=== PATIENT | male | born 1945 | race Caucasian/White ===

== ENCOUNTER → 2016-12-09 07:01 | Day surgery (SDC) | payer MEDICARE, BC ==
[~2016-12-09 07:01] MED LIST: Ibuprofen TAB* 600 MG ONE; Ibuprofen TAB* 600 MG PO PRN
[2016-12-09 07:19] VITALS: BP 104/54
--- NOTE | 2016-12-09 08:52 | RAD ---
Indication: Post power port placement. Comparison: July 12, 2016 CT. Technique: Upright AP 0825 hours Report: RIGHT chest port tip at level of superior vena cava RIGHT atrial junction. Clear lungs and pleural spaces. Negative for pneumothorax. The heart, pulmonary vasculature, and mediastinal contours are unremarkable. IMPRESSION: Negative for pneumothorax post RIGHT chest port placement.
--- NOTE | 2016-12-09 08:54 | RAD ---
INDICATION: Pancreatic carcinoma. Chest port placement. COMPARISON: None. TECHNIQUE: 10 seconds fluoroscopy. FINDINGS: Spot images document a RIGHT side chest port. IMPRESSION: Procedural fluoroscopy. CPT II Codes: 6045F
--- NOTE | 2016-12-10 00:11 | OP ---
DATE OF OPERATION: 12/09/16 DATE OF : 47 SURGEON: Eliu Chen MD JOB ANALYST: None. ANESTHESIOLOGIST: None. PRE-OP DIAGNOSIS: Pancreatic carcinoma. POST-OP DIAGNOSIS: Pancreatic carcinoma. OPERATIVE PROCEDURE: Placement of right subclavian 8-Emirati PowerPort. DESCRIPTION OF PROCEDURE: The patient was supine on the fluoroscopy table. The right chest and neck region were prepped with antiseptic, draped in a sterile fashion. Local infiltrative anesthesia was administered. Approximately 3-cm right subclavian incision was created and inferior pocket was created. Subclavian venipuncture was carried out, guidewire passed under fluoroscopic guidance, catheter passed with a peel-away introducer and measured and cut to 22 cm, attached to the port, which was sutured in the pocket with 2-0 Prolene. The pocket was closed with 3-0 and 5-0 Polysorb followed by Steri-Strips. The port was accessed, there was good blood return especially with saline solution and heparinized solution followed by a Tegaderm dressing. He tolerated the procedure well. He was brought to Recovery in good condition, no complications , no drains, no pathologic specimens. Sponge and instrument counts correct. Estimated blood loss 5 mL. CC: Eliu Chen MD; Surya Gregorio MD * [id number]/[facility] #: [id number] MTDD
== END | disposition home or self-care (01) ==
LOC: OR 07:01
PROVIDERS: ATTEND Surgery
DX: C25.9 Malignant neoplasm of pancreas, unspecified (principal); E11.8 Type 2 diabetes mellitus with unspecified complications; Z79.4 Long term (current) use of insulin; Z87.891 Personal history of nicotine dependence
CPT/HCPCS: 71010; A9270-GY; C1788

== ENCOUNTER 2016-12-22 17:42 | Emergency (ER) | payer MEDICARE, BC ==
[2016-12-22] MEDS ORDERED: NS 0.9% 1000 ML* 3,000 ML IV ONE (18:30)
[2016-12-22] MEDS ORDERED: Cefepime(*) 2 GM in NS 0.9% 50 ML* 50 ML IVPB ONE (18:30)
[2016-12-22] MEDS ORDERED: Ciprofloxacin 400MG IVPREMIX(* 400 MG/200 ML BAG IVPB ONE (18:31)
[2016-12-22] MEDS ORDERED: metroNIDAZOLE IV 500 MG/100ML* 500 MG/100 ML BAG IVPB ONE (18:31)
[2016-12-22] MEDS ORDERED: NS 0.9% 50 ML* 0 ML ONE (19:41)
[2016-12-22 19:46] LABS: Hematocrit 28 % (42-52); Hemoglobin 9.4 g/dl (14.0-18.0); Mean Corpuscular HGB Conc 33 g/dl (31-36); Mean Corpuscular Hemoglobin 30 pg (27-31); Mean Corpuscular Volume 92 fL (80-94); Mean Platelet Volume 6 um3 (7.4-10.4); Red Blood Count 3.08 10^6/ul (4.0-5.4); Red Cell Distribution Width 15 % (10.5-15)
[2016-12-22 19:58] LABS: Comments Flag Yes
[2016-12-22 19:59] LABS: White Blood Count 3.3 10^3/ul (3.5-10.8)
[2016-12-22 20:01] LABS: ALT 75 U/L (7-52); AST 109 U/L (13-39); Alkaline Phosphatase 603 U/L (34-104); Anion Gap 7 mmol/L (2-11); BUN/Creatinine Ratio 21.1 (8-20); Blood Urea Nitrogen 15 mg/dL (6-24); C Reactive Protein 71.45 mg/L (< 5.00); CO2 Carbon Dioxide 26 mmol/L (22-32); Calcium 8.9 mg/dL (8.6-10.3); Chloride 99 mmol/L (101-111); EGFR African American 141.1 (>60); EGFR Non-African American 109.7 (>60); Globulin 3.4 g/dL (2-4); Glucose 157 mg/dL (70-100); Lipase < 10 U/L (11.0-82.0); Magnesium 1.4 mg/dL (1.9-2.7); Potassium 3.1 mmol/L (3.5-5.0); Sodium 132 mmol/L (133-145); Total Protein 6.4 g/dL (6.4-8.9)
[2016-12-22 20:02] LABS: Troponin I 0.01 ng/mL (<0.04)
[2016-12-22] MEDS ORDERED: Magnesium Sulfate 2 GM IV* 2 GM/50 ML BAG IVPB ONE (20:02)
--- NOTE | 2016-12-22 20:06 | ED ---
Tamara Upton Erika, scribed for Deep Small MD on 12/22/16 at 1901 . HPI Febrile Illness - HPI Summary HPI Summary: Patient is a 71-year-old male presenting to the ED with a CC of fever. Patient reports that when he woke up this morning, he had a fever (max temp 102-103), chills, and fatigue. Patient took Tylenol at 11:00 today. Patient also states he has had diarrhea for the past week. Patient has a Hx of bile duct cancer, and reports abdominal pain since he had a whipple in August 2016, but pain is worse today. Patient denies nasal discharge, sore throat, cough, chest congestion, nausea, and burning with urination. Patient reports that he had blood work done this morning, which showed a mildly low WBC count. Patient is due for chemotherapy tomorrow, and is followed by Dr. Gregorio. - History of Current Complaint Chief Complaint: EDFever Time Seen by Provider: 12/22/16 18:23 Hx Obtained From: Patient Onset/Duration: Started Hours Ago, Atraumatic, Still Present Timing: Constant Current Severity: Moderate Pain Intensity: 4 Pain Scale Used: 0-10 Numeric Associated Signs and Symptoms: Chills, Diarrhea - Additional Pertinent History Primary Care Physician: CHEY - Allergy/Home Medications Allergies/Adverse Reactions: Allergies Allergy/AdvReac Type Severity Reaction Status Date / Time No Known Allergies Allergy Verified 12/09/16 07:20 PMH/Surg Hx/FS Hx/Imm Hx Endocrine/Hematology History: Reports: Hx Diabetes - just started insulin since ipple Cardiovascular History: Denies: Hx Hypertension History: Denies: Hx Dialysis, Hx Renal Disease Sensory History: Reports: Hx Contacts or Glasses Opthamlomology History: Reports: Hx Contacts or Glasses Psychiatric History: Denies: Hx Eating Disorder, Hx of Violent Episodes Against Others - Cancer History Cancer Type, 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 ipple 07/30/16 Infectious Disease History: No Infectious Disease History: Denies: Traveled Outside the [place] in Last 30 Days - Family History Known Family History: Positive: Hypertension - Social History Lives: With Family Alcohol Use: Occasionally Hx Substance Use: No Substance Use Type: Reports: None Hx Tobacco Use: Yes Smoking Status (MU): Former Smoker Review of Systems Positive: Fever, Chills, Fatigue Negative: Sore Throat, Nasal Discharge Negative: Cough Positive: Abdominal Pain, Diarrhea. Negative: Nausea Negative: burning All Other Systems Reviewed And Are Negative: Yes Physical Exam Triage Information Reviewed: Yes Vital Signs On Initial Exam: Initial Vitals Temp Pulse Resp BP Pulse Ox 101.7 F 114 20 84/49 98 12/22/16 17:52 12/22/16 17:52 12/22/16 17:52 12/22/16 17:52 12/22/16 17:52 Vital Signs Reviewed: Yes Appearance: Positive: No Pain Distress, Ill-Appearing - Mildly Skin: Positive: Warm, Dry, Jaundiced, Other Head/Face: Positive: Normal Head/Face Inspection Eyes: Positive: EOMI, QUANG ENT: Positive: Normal ENT inspection Neck: Positive: Supple, Nontender Respiratory/Lung Sounds: Positive: Clear to Auscultation, Breath Sounds Present Cardiovascular: Positive: Tachycardia Abdomen Description: Positive: Soft, Other: - upper abdominal tenderness Bowel Sounds: Positive: Hypoactive Musculoskeletal: Positive: Normal, Strength/ROM Intact Neurological: Positive: Normal, Sensory/Motor Intact, Alert, Oriented to Person Place, Time Psychiatric: Positive: Affect/Mood Appropriate Diagnostics - Vital Signs Vital Signs Temp Pulse Resp BP Pulse Ox 12/22/16 17:52 101.7 F 114 20 84/49 98 - Laboratory Lab Results: Lab Results 12/22/16 12/22/16 12/22/16 Range/Units 19:40 19:40 19:40 WBC 3.3 L (3.5-10.8) 10^3/ul RBC 3.08 L (4.0-5.4) 10^6/ul Hgb 9.4 L (14.0-18.0) g/dl Hct 28 L (42-52) % MCV 92 (80-94) fL MCH 30 (27-31) pg MCHC 33 (31-36) g/dl RDW 15 (10.5-15) % Plt Count 60 L (150-450) 10^3/ul MPV 6 L (7.4-10.4) um3 Neut % (Auto) 84.4 H (38-83) % Lymph % (Auto) 7.4 L (25-47) % [place] % (Auto) 7.9 (1-9) % Eos % (Auto) 0.1 (0-6) % Baso % (Auto) 0.2 (0-2) % Absolute Neuts (auto) 2.7 (1.5-7.7) 10^3/ul Absolute Lymphs (auto) 0.2 L (1.0-4.8) 10^3/ul Absolute Monos (auto) 0.3 (0-0.8) 10^3/ul Absolute Eos (auto) 0 (0-0.6) 10^3/ul Absolute Basos (auto) 0 (0-0.2) 10^3/ul Absolute Nucleated RBC 0.01 10^3/ul Nucleated RBC % 0.2 INR (Anticoag Therapy) 1.30 H (0.89-1.11) APTT 37.6 H (26.0-36.3) seconds Sodium 132 L (133-145) mmol/L Potassium 3.1 L (3.5-5.0) mmol/L Chloride 99 L (101-111) mmol/L Carbon Dioxide 26 (22-32) mmol/L Anion Gap 7 (2-11) mmol/L BUN 15 (6-24) mg/dL Creatinine 0.71 (0.67-1.17) mg/dL Est GFR ( Amer) 141.1 (>60) Est GFR (Non-Af Amer) 109.7 (>60) BUN/Creatinine Ratio 21.1 H (8-20) Glucose 157 H (70-100) mg/dL Lactic Acid (0.5-2.0) mmol/L Calcium 8.9 (8.6-10.3) mg/dL Magnesium 1.4 L (1.9-2.7) mg/dL Total Bilirubin 2.40 H (0.2-1.0) mg/dL AST 109 H (13-39) U/L ALT 75 H (7-52) U/L Alkaline Phosphatase 603 H (34-104) U/L CK-MB (CK-2) Pending Troponin I 0.01 (<0.04) ng/mL C-Reactive Protein 71.45 H (< 5.00) mg/L Total Protein 6.4 (6.4-8.9) g/dL Albumin 3.0 L (3.2-5.2) g/dL Globulin 3.4 (2-4) g/dL Albumin/Globulin Ratio 0.9 L (1-3) Lipase < 10 L (11.0-82.0) U/L 12/22/16 Range/Units 19:40 WBC (3.5-10.8) 10^3/ul RBC (4.0-5.4) 10^6/ul Hgb (14.0-18.0) g/dl Hct (42-52) % MCV (80-94) fL MCH (27-31) pg MCHC (31-36) g/dl RDW (10.5-15) % Plt Count (150-450) 10^3/ul MPV (7.4-10.4) um3 Neut % (Auto) (38-83) % Lymph % (Auto) (25-47) % [place] % (Auto) (1-9) % Eos % (Auto) (0-6) % Baso % (Auto) (0-2) % Absolute Neuts (auto) (1.5-7.7) 10^3/ul Absolute Lymphs (auto) (1.0-4.8) 10^3/ul Absolute Monos (auto) (0-0.8) 10^3/ul Absolute Eos (auto) (0-0.6) 10^3/ul Absolute Basos (auto) (0-0.2) 10^3/ul Absolute Nucleated RBC 10^3/ul Nucleated RBC % INR (Anticoag Therapy) (0.89-1.11) APTT (26.0-36.3) seconds Sodium (133-145) mmol/L Potassium (3.5-5.0) mmol/L Chloride (101-111) mmol/L Carbon Dioxide (22-32) mmol/L Anion Gap (2-11) mmol/L BUN (6-24) mg/dL Creatinine (0.67-1.17) mg/dL Est GFR ( Amer) (>60) Est GFR (Non-Af Amer) (>60) BUN/Creatinine Ratio (8-20) Glucose (70-100) mg/dL Lactic Acid 2.0 (0.5-2.0) mmol/L Calcium (8.6-10.3) mg/dL Magnesium (1.9-2.7) mg/dL Total Bilirubin (0.2-1.0) mg/dL AST (13-39) U/L ALT (7-52) U/L Alkaline Phosphatase (34-104) U/L CK-MB (CK-2) Troponin I (<0.04) ng/mL C-Reactive Protein (< 5.00) mg/L Total Protein (6.4-8.9) g/dL Albumin (3.2-5.2) g/dL Globulin (2-4) g/dL Albumin/Globulin Ratio (1-3) Lipase (11.0-82.0) U/L Result Diagrams: 12/22/16 19:40 12/22/16 19:40 Lab Statement: Any lab studies that have been ordered have been reviewed, and results considered in the medical decision making process. - Radiology CXR Radiology Interpretation Completed By: Radiologist - see [facility], currently pending - EKG 18:17 Cardiac Rate: NL - at 92 bpm EKG Rhythm: Sinus Rhythm ST Segment: Normal Ectopy: None Course/Dx - Course Course Of Treatment: CRITICAL CARE TIME LESS THAN 30 MINUTES Assessment/Plan: GIVEN ABX AND IVF IN ED. CT ABD/PELVIS PENDING AT SHIFT CHANGE. ADMIT VS TRANSFER DECISION PENDING CT RESULTS. STABLE AT SHIFT CHANGE. - Diagnoses Provider Diagnoses: Sepsis, Abdominal pain Discharge - Discharge Plan Condition: Stable Disposition: OTHER Discharge Disposition Comment: CT RESULTS PENDING AT SHIFT CHANGE Referrals: Deep Sheldon MD [Primary Care Provider] - The documentation as recorded by the Tamara ortez Erika accurately reflects the service I personally performed and the decisions made by me, Deep Small MD.
[2016-12-22 20:20] VITALS: BP 96/55
[2016-12-22] MEDS ORDERED: Iodixanol* (CONTRAST) 320 MG/ML 100 ML SDV IV ONE (20:29)
--- NOTE | 2016-12-22 21:05 | RAD ---
Indication: Fever. Single frontal view of the chest performed at 1952 hours was reviewed. Comparison is made with previous exam dated December 09, 2016. No mediastinal shift is noted. Heart is of normal size and configuration. Lung harvey appear clear. Central line appears in place. IMPRESSION: NO ACTIVE CARDIOPULMONARY DISEASE IS NOTED.
--- NOTE | 2016-12-22 21:43 | RAD ---
Indication: Status post Whipple's procedure, pancreatic carcinoma. Contrast: Administered 87.8 ml of VISAPAQUE 320 mgi/ml CT of the abdomen and pelvis was performed after oral and IV contrast administration. Coronal and sagittal reconstructed images were obtained. The lung bases demonstrate no pleural fluid, nodules or masses. Left basilar atelectasis is noted. The heart demonstrates no pericardial effusion. The liver is normal in size. Hepatic cyst is noted in the dome of the right lobe of liver measuring up to 20 mm. Other cysts are noted in the left lobe of liver. There is linear low density in the periportal structures surrounding the left lobe of the liver. The patient has had prior cysts and biliary duct dilatation in this area. The linear hypodensity now appear to be ill-defined relative to the prior exam and the possibility of cholangitis cannot BE excluded. The patient status post Whipple procedure. Presumed pancreatic duct stent is noted extending into the anastomosis. Mild infiltration of fat surrounding pancreaticoduodenal ostomy is present. This is slightly progressed from previous exam. Underlying pancreatitis is not excluded. The spleen is normal in size. No adrenal masses are noted. The kidneys demonstrate symmetric nephrograms without focal lesions. No hydronephrosis is noted. No retroperitoneal lymphadenopathy is noted. Infiltration of fat is noted surrounding the retroperitoneal structures. No dilated loops of bowel are noted. There is focal wall thickening in the cecum. Possibility of typhlitis should BE considered. Diverticulosis without definite evidence of diverticulitis is noted. A small amount of free fluid is noted in the cul-de-sac. The urinary bladder and prostate are unremarkable. IMPRESSION: THERE IS INCREASED ILL-DEFINED PERIPORTAL EDEMA PRESENT WHEN COMPARED TO PREVIOUS EXAM OF OCTOBER 01, 2016. THE POSSIBILITY OF CHOLANGITIS SHOULD BE CONSIDERED. THERE MAY BE UNDERLYING PANCREATITIS WITH INFILTRATION OF FAT AT THE PANCREATICODUODENOSTOMY WITH PANCREATIC STENT IN PLACE. THICKENING OF THE CECUM WHICH MAY REPRESENT TYPHLITIS. CUL-DE-SAC FLUID IS IMPROVED SINCE PREVIOUS EXAM.
--- NOTE | 2016-12-22 21:46 | ED ---
Annie Upton Michael, scribed for Eliu Quesada MD on 12/22/16 at 2144 . Progress - Progress Note Progress Note: Pt was signed out to Dr. Quesada by Dr. Small. The pt must be transferred to [facility] after consulting with Dr. Ge-[facility] [place] [facility]. - Results/Orders Results/Orders: CXR: Radiologist-No active cardiopulmonary disease is noted. CT A/P: Radiologist- There is increased ill-defined periportal edema present when compared to previous exam of October 01, 2016. The possibility of cholangitis should be considered. There may be underlying pancreatitis with infiltration of fat at the pancreaticoduodenostomy with pancreatic stent in place. Thickening of the cecum which may represent typhlitis. [place] fluid improved since previous exam. Course/Dx - Course Course Of Treatment: CRITICAL CARE TIME LESS THAN 30 MINUTES - Diagnoses Provider Diagnoses: Sepsis, Abdominal pain The documentation as recorded by the Annie ortez Michael accurately reflects the service I personally performed and the decisions made by Dipak corbin David, MD.
[2016-12-22 22:17] LABS: Urine Bilirubin Negative (Negative); Urine Glucose Negative (Negative); Urine Nitrite Negative (Negative)
--- NOTE | 2016-12-22 22:41 | CONSULT ---
Consult Consult: PCP: Mariah Sheldon MD Oncology: Farhan Gregorio MD Date/Time of Evaluation: 12/22/2016 2230 Reason for Consult: fever, increased abdominal pain in patient w/ pancreatic CA s/p modified Whipple HPI: Mr Ramirez is a 71YO male HX pancreatic CA s/p modified Whipple performed at [facility] 07/2016 complicated by abscess formation & pancreatic stenting as well as post-ABX C-diff who reports awakening this AM with subjective F/C and significantly increased fatigue. He has had some mild stable diarrhea present since starting chemoTX. He slept most of the day and called his oncologist's office when his temperature was found to be 102F. He was advised to come to [facility] ED for evaluation which revealed a CT abd/pel W read as possible cholangiitis vs pancreatitis. Request for admission was made, but due to concern for his complicated anatomy his situation was reviewed with Luis Fernando Ge MD surgery who felt he would be best served at [facility] where they would be able to definitely handle any infectious complication. As such, recommendation to transfer was made. PMedHx pancreatic CA s/p modified Whipple complicated by abscess; s/p pancreatic stenting HX C.diff Crohn's disease GERD DM2 HX diverticulitis Allergies No Known Allergies Allergy (Verified 12/09/16 07:20) Ambulatory Orders Omeprazole CAP* [Prilosec CAP* 20 MG] 20 mg PO DAILY 06/26/14 Lactobacillus [Probiotic] 06/27/16 Insulin Cartridge 3Ml 4 units SUBCUT DAILY 10/01/16 Acetaminophen [Tylenol] 325 mg PO QID 12/09/16 Ursodiol 250 mg PO BID 12/09/16 PSurgHx modified Whipple pancreatic stenting cholecystectomy tonsillectomy R knee arthroscopy for joint mouse SocHx: former smoker quit ~20 years ago, social alcohol, no recreational drugs; ; retired school counselor; full code status FamHx: positive for HTN, GERD ROS: as above, otherwise reviewed and all were negative Constitutional: NAD, normally developed, thin white male vitals: Vital Signs Temp 38.1 C 12/22/16 20:27 Pulse 87 12/22/16 20:27 Resp 19 12/22/16 20:27 BP 96/55 12/22/16 20:27 Pulse Ox 100 12/22/16 20:27 Intake & Output 12/22/16 12/22/16 12/23/16 11:59 23:59 11:59 Weight 70.307 kg HEENM: atraumatic; sclera/conjunctiva: non-icteric/clear; hearing: clinically intact; oropharynx: clear, mucosa moist Neck: soft tissue: non-tender, no nuchal rigidity; thyroid: normal Pulmonary: clear to auscultation bilaterally, good aeration, no accessory muscle use CV: RR/RR, normal S1S2, no carotid bruit, no jugular venous distention, 2+ B DP/ PT, no edema Abdominal: soft, non-distended, non-tender, no rebound/guarding/rigidity, normoactive bowel sounds, no hepatosplenomegaly or masses, no costovertebral angle tenderness Musculoskeletal: general: grossly intact; gait: stable Integumental: normal appearance and texture, no jaundice Psychiatric orientation: AA&O to PPS affect: calm mood: cooperative eye contact: good content: reliable responses: timely insight: good Testing: Lab Results 12/22/16 12/22/16 12/22/16 Range/Units 19:40 19:40 19:40 WBC 3.3 L (3.5-10.8) 10^3/ul RBC 3.08 L (4.0-5.4) 10^6/ul Hgb 9.4 L (14.0-18.0) g/dl Hct 28 L (42-52) % MCV 92 (80-94) fL MCH 30 (27-31) pg MCHC 33 (31-36) g/dl RDW 15 (10.5-15) % Plt Count 60 L (150-450) 10^3/ul MPV 6 L (7.4-10.4) um3 Neut % (Auto) 84.4 H (38-83) % Lymph % (Auto) 7.4 L (25-47) % [place] % (Auto) 7.9 (1-9) % Eos % (Auto) 0.1 (0-6) % Baso % (Auto) 0.2 (0-2) % Absolute Neuts (auto) 2.7 (1.5-7.7) 10^3/ul Absolute Lymphs (auto) 0.2 L (1.0-4.8) 10^3/ul Absolute Monos (auto) 0.3 (0-0.8) 10^3/ul Absolute Eos (auto) 0 (0-0.6) 10^3/ul Absolute Basos (auto) 0 (0-0.2) 10^3/ul Absolute Nucleated RBC 0.01 10^3/ul Nucleated RBC % 0.2 INR (Anticoag Therapy) 1.30 H (0.89-1.11) APTT 37.6 H (26.0-36.3) seconds Sodium 132 L (133-145) mmol/L Potassium 3.1 L (3.5-5.0) mmol/L Chloride 99 L (101-111) mmol/L Carbon Dioxide 26 (22-32) mmol/L Anion Gap 7 (2-11) mmol/L BUN 15 (6-24) mg/dL Creatinine 0.71 (0.67-1.17) mg/dL Est GFR ( Amer) 141.1 (>60) Est GFR (Non-Af Amer) 109.7 (>60) BUN/Creatinine Ratio 21.1 H (8-20) Glucose 157 H (70-100) mg/dL Lactic Acid (0.5-2.0) mmol/L Calcium 8.9 (8.6-10.3) mg/dL Magnesium 1.4 L (1.9-2.7) mg/dL Total Bilirubin 2.40 H (0.2-1.0) mg/dL AST 109 H (13-39) U/L ALT 75 H (7-52) U/L Alkaline Phosphatase 603 H (34-104) U/L CK-MB (CK-2) 0.4 L (0.6-6.3) ng/mL Troponin I 0.01 (<0.04) ng/mL C-Reactive Protein 71.45 H (< 5.00) mg/L Total Protein 6.4 (6.4-8.9) g/dL Albumin 3.0 L (3.2-5.2) g/dL Globulin 3.4 (2-4) g/dL Albumin/Globulin Ratio 0.9 L (1-3) Lipase < 10 L (11.0-82.0) U/L Urine Color Urine Appearance Urine pH (5-9) Ur Specific [place] (1.010-1.030) Urine Protein (Negative) Urine Ketones (Negative) Urine Blood (Negative) Urine Nitrate (Negative) Urine Bilirubin (Negative) Urine Urobilinogen (Negative) Ur Leukocyte Esterase (Negative) Urine Glucose (Negative) 12/22/16 12/22/16 Range/Units 19:40 22:10 WBC (3.5-10.8) 10^3/ul RBC (4.0-5.4) 10^6/ul Hgb (14.0-18.0) g/dl Hct (42-52) % MCV (80-94) fL MCH (27-31) pg MCHC (31-36) g/dl RDW (10.5-15) % Plt Count (150-450) 10^3/ul MPV (7.4-10.4) um3 Neut % (Auto) (38-83) % Lymph % (Auto) (25-47) % [place] % (Auto) (1-9) % Eos % (Auto) (0-6) % Baso % (Auto) (0-2) % Absolute Neuts (auto) (1.5-7.7) 10^3/ul Absolute Lymphs (auto) (1.0-4.8) 10^3/ul Absolute Monos (auto) (0-0.8) 10^3/ul Absolute Eos (auto) (0-0.6) 10^3/ul Absolute Basos (auto) (0-0.2) 10^3/ul Absolute Nucleated RBC 10^3/ul Nucleated RBC % INR (Anticoag Therapy) (0.89-1.11) APTT (26.0-36.3) seconds Sodium (133-145) mmol/L Potassium (3.5-5.0) mmol/L Chloride (101-111) mmol/L Carbon Dioxide (22-32) mmol/L Anion Gap (2-11) mmol/L BUN (6-24) mg/dL Creatinine (0.67-1.17) mg/dL Est GFR ( Amer) (>60) Est GFR (Non-Af Amer) (>60) BUN/Creatinine Ratio (8-20) Glucose (70-100) mg/dL Lactic Acid 2.0 (0.5-2.0) mmol/L Calcium (8.6-10.3) mg/dL Magnesium (1.9-2.7) mg/dL Total Bilirubin (0.2-1.0) mg/dL AST (13-39) U/L ALT (7-52) U/L Alkaline Phosphatase (34-104) U/L CK-MB (CK-2) (0.6-6.3) ng/mL Troponin I (<0.04) ng/mL C-Reactive Protein (< 5.00) mg/L Total Protein (6.4-8.9) g/dL Albumin (3.2-5.2) g/dL Globulin (2-4) g/dL Albumin/Globulin Ratio (1-3) Lipase (11.0-82.0) U/L Urine Color [place] Urine Appearance Clear Urine pH 6.0 (5-9) Ur Specific [place] 1.020 (1.010-1.030) Urine Protein Negative (Negative) Urine Ketones Negative (Negative) Urine Blood Negative (Negative) Urine Nitrate Negative (Negative) Urine Bilirubin Negative (Negative) Urine Urobilinogen Negative (Negative) Ur Leukocyte Esterase Negative (Negative) Urine Glucose Negative (Negative) ECG, personally reviewed: IMPRESSION: NO ACTIVE CARDIOPULMONARY DISEASE IS NOTED. CT abd/pel W, personally reviewed: IMPRESSION: THERE IS INCREASED ILL-DEFINED PERIPORTAL EDEMA PRESENT WHEN COMPARED TO PREVIOUS EXAM OF OCTOBER 01, 2016. THE POSSIBILITY OF CHOLANGITIS SHOULD BE CONSIDERED. THERE MAY BE UNDERLYING PANCREATITIS WITH INFILTRATION OF FAT AT THE PANCREATICODUODENOSTOMY WITH PANCREATIC STENT IN PLACE. THICKENING OF THE CECUM WHICH MAY REPRESENT TYPHLITIS. CUL-DE-SAC FLUID IS IMPROVED SINCE PREVIOUS EXAM. Impression: 71M HX pancreatic CA s/p modified Whipple 07/2016 & pancreatic stent presents with fever, fatigue, leukopenia w/ adequate ANC and CT findings suggestive of cholangiitis vs pancreatitis whose complexity and potential need for surgical intervention unavailable at [facility] is recommended transfer to [facility] for higher level of care. Risks and benefits are explained. Questions are sought and answered to his satisfaction and he accepts transfer.
--- NOTE | 2016-12-24 09:22 | PN ---
Progress Note - Progress Note Note: Patient blood culture grew klebsiella pneumonia. Patient transferred to [facility] for sepsis so no further action needed at this time.
--- NOTE | 2016-12-26 08:46 | PN ---
Progress Note - Progress Note Note: Patient culture final results came back with growth of klebsiella pneumonia. Patient was given Flagyl in ED which bacteria is sensitive to and patient was transferred to facility for sepsis therefore no further action needed at this time.
== END 2016-12-23 01:08 | disposition short-term general hospital (02) ==
LOC: ED 17:42
DX: A41.9 Sepsis, unspecified organism (principal); R10.9 Unspecified abdominal pain; C25.9 Malignant neoplasm of pancreas, unspecified
CPT/HCPCS: 36415; 71010; 74177; 80053; 81003; 82553; 83605; 83690; 83735; 84484; 85025; 85060; 85610; 85730; 86140; 87040; 87077; 87186; 93005; 96365; 99283; J0692; J0744; J3475; J3490; Q9967

== ENCOUNTER 2017-03-16 12:08 | Inpatient (IN) | payer MEDICARE, BC ==
[~2017-03-16 12:08] MED LIST changes: -Ibuprofen TAB* 600 MG ONE; -Ibuprofen TAB* 600 MG PO PRN; +NS 0.9% 1000 ML* 1,000 ML IV SCH
[2017-03-16] MEDS ORDERED: Prochlorperazine TAB* 10 MG PO PRN (13:42)
[2017-03-16] MEDS: Pantoprazole IV* 40 MG IV SCH (15:44)
[2017-03-16] MEDS: Heparin VIAL(*) 5000 UNITS/ML VIAL (FIVE THOUSAND) SUBCUT SCH ×2 (15:45→22:12)
--- NOTE | 2017-03-16 18:04 | RAD ---
INDICATION: Colitis; uncontrolled diarrhea. History of Crohn's disease and pancreatic cancer. COMPARISON: December 22, 2016 CT. TECHNIQUE: Multidetector CT images were obtained from the lung bases to the ischial tuberosities. Evaluation of the viscera is limited without IV contrast. Multiplanar reformation. REPORT: Unremarkable visualized inferior thorax. Unchanged well-circumscribed water density lesions at the dome of the LEFT hepatic lobe with dominant 2.1 cm lesion. Assessment of the liver is limited without IV contrast. Post cholecystectomy. Pneumobilia. No biliary dilatation evident. Postsurgical change of resection of the pancreatic head. Proximal migration of the stent extending from the pancreatic duct to the small bowel compared with the prior exam. Residual pancreatic body and tail appear enlarged compared with the prior exam and remarkable for mild peripancreatic inflammatory change concerning for pancreatitis. No loculated peripancreatic fluid collections evident. Grossly new mass at the expected location of the pancreatic head measuring up to 4.4 cm AP by 4.3 cm transverse. This lesion appears to engulf the free end of a bowel loop related to the post Whipple biliary and pancreatic duct enteric anastomosis. Unchanged mild splenomegaly. Negative for CT abnormality of the jejunum or ileum. Unremarkable medially extending appendix. Moderate colonic diverticulosis most prominent at the sigmoid colon without compelling evidence for acute diverticulitis. Long segment mild hepatic flexure and transverse colon mural thickening with air-fluid levels without significant colonic dilatation. Negative for pneumatosis. Small volume of perihepatic and pelvic ascites similar to the prior exam. Diffuse reticulation throughout the abdominal fat without significant change. Negative for free air or hernias. Normal adrenal glands. Negative for hydronephrosis. Unremarkable unenhanced kidneys, ureters, and partially distended urinary bladder. Symmetric seminal vesicles. Subcentimeter short axis para-aortic and mesenteric lymph nodes noted without significant interval change. Negative for lymphadenopathy by size criteria. Negative for aortoiliac aneurysm. Partial physiologic distention of the IVC. Negative for suspicious osseous lesions. IMPRESSION: 1. Nonspecific long segment mild mural thickening of the colon with air-fluid levels without significant bowel dilatation. The appearance is consistent with mild nonspecific colitis. Colonic diverticulosis without findings of diverticulitis. 2. Interval significant enlargement of mass lesion at the level of the pancreatic head resection site. This lesion appears to engulf the free end of a bowel loop related to the post Whipple biliary and pancreatic duct enteric anastomosis. 3. Interval proximal rightward migration of the pancreatic stent and CT stigmata of probable acute pancreatitis. 4. Persistent small volume of ascites and reticulation throughout the abdominal fat concerning for potential peritoneal carcinomatosis. 5. Unchanged well-circumscribed water density lesions at the dome of the LEFT hepatic lobe with dominant 2.1 cm lesion.
--- NOTE | 2017-03-16 21:49 | CONS ---
GASTROENTEROLOGY CONSULT: DATE OF CONSULT: 03/16/17 REFERRING PHYSICIANS: Shubham Jade MD; Surya Gregorio MD REASON FOR CONSULTATION: Diarrhea starting abruptly, Tuesday evening, . HISTORY: This 71-year-old man who had a Whipple resection for pancreatic cancer fall and has recurring and persisting disease, now on gemcitabine for the last 3 months, had also a remote history of Crohn's disease , last treated with azathioprine and Lialda until June 2016 when he presented with obstructive jaundice, now has developed abrupt diarrhea for the last 4 days. He had a PowerPort placed on 12/09/16 because of persisting disease and Gemzar was started and has been given recurrently. He states that the last 3 weeks, he has been feeling pretty well and indeed went to [employer] [place] and then [place] on 03/11/17, and felt well enough to go to a [employer] the afternoon of 03/12/17 where he had potato salad and a pork sandwich. That evening, he developed abdomen and then diarrhea that began around midnight approximately hourly. He felt chills. He did not take his temperature. He did not have any vomiting. There was just persisting diarrhea. He contacted the oncology office and had a C. diff test on 03/12/17, that was negative. He continued to have diarrhea and became weaker and weaker and thought he had lost 10 pounds. He has been admitted to the hospital and he is afebrile with temp 98.2, blood pressure 111/63. Potassium is low at 2.9, sodium 131, BUN 26, creatinine 1.05. He is receiving electrolyte replacement. PAST MEDICAL HISTORY: 1. Pancreatic cancer - status post Whipple, then readmission for infection. Most recent CT scans have shown a 4 cm mass in the pancreatic bed area. 2. Crohn's disease - diagnosed at age 51 when he went in for screening colonoscopy. At that time, he just thought he was prone to diarrhea from time- to- time, but had not had any classic Crohn's symptoms. His screening colonoscopy found the Crohn's, and he had been on azathioprine for 10 or 12 years when his pancreatic cancer turned up. The Crohn's was always in the colon. The ileum appears to have been spared, at least on a couple of colonoscopy reports reviewed. 3. History of Clostridium difficile - treated November 2016. His caught it. 4. History of diverticulitis - he was treated clinically as having diverticulitis several times and there was even some question of having a limited resection in 2014 or 2015. These were conversations with Dr. Bolton. It appears he never actually got a surgical consultation regarding this. 5. Glucose intolerance - treated as a diabetic. SOCIAL HISTORY: He is , had been snowboarding in [place] several times. 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 REVIEW OF SYSTEMS: No history of VA, angina, arrhythmia, syncope, seizures, migraines, thyroid disease, falls, or fractures. He was seen here about 2 weeks after his PowerPort was placed with fever and mildly elevated LFTs. He was transferred to [facility] and spent just a day there with all the symptoms resolving without intervention. PHYSICAL EXAMINATION: He is a slightly pale, tired appearing, slender man, in no overt distress. He does not feel febrile. He is anicteric. Mucous membranes are normal. He has no adenopathy. His lungs are clear. The abdomen is flat, some mild prominence at the periumbilical area. Bowel sounds are active and of normal pitch. The abdomen is soft, though there is some diffuse sensitivity to deep palpation. There is no focal tenderness. Perianal inspection is normal and rectal reveals just a little bit of mucus with no lucho diarrhea present. Stool studies - on 03/14/17, C. diff negative and on 03/16/17, thus far still as described as greenish brown non-formed liquid, negative for Hemoccult and positive for lactoferrin. IMPRESSION: This 71-year-old man undergo gemcitabine chemotherapy for pancreatic cancer, is status post Whipple resection about 8 months ago, has the abrupt onset of diarrhea with situation suggesting an infection. Cultures are pending. He is not particularly toxic now and there is no specific reason to give any antibiotic especially since he has had C. diff and his has also recently had C. diff. His colon is thickened on CT, though this is nonspecific. The current situation is not typical of Crohn's disease. He is on ursodiol chronically, which would tend to loosen the stool and increase the normal expected daily number. [id number]/[facility] #: [id number] [facility]
[2017-03-16] MEDS: Ursodiol CAP* 300 MG PO SCH (22:12)
[2017-03-17] MEDS: NS 0.9% w/ 40 Meq KCL 1000 ML* 1,000 ML IV SCH ×4 (00:05→19:47)
[2017-03-17] MEDS: Acetaminophen TAB* 325 MG PO PRN (06:58)
[2017-03-17] MEDS: Heparin VIAL(*) 5000 UNITS/ML VIAL (FIVE THOUSAND) SUBCUT SCH ×4 (06:58→20:59)
[2017-03-17 07:35] LABS: Hematocrit 28 % (42-52); Hemoglobin 9.5 g/dl (14.0-18.0); Mean Corpuscular HGB Conc 33 g/dl (31-36); Mean Corpuscular Hemoglobin 31 pg (27-31); Mean Corpuscular Volume 93 fL (80-94); Mean Platelet Volume 7 um3 (7.4-10.4); Red Blood Count 3.07 10^6/ul (4.0-5.4); Red Cell Distribution Width 17 % (10.5-15)
[2017-03-17 07:36] LABS: Add Diff/Slide Review? Slide Review Added; Comments Flag Yes
[2017-03-17 07:46] LABS: Albumin 3.1 g/dL (3.2-5.2); Calcium 8.9 mg/dL (8.6-10.3); EGFR African American 128.4 (>60); EGFR Non-African American 99.9 (>60); Globulin 3.1 g/dL (2-4); Potassium 3.3 mmol/L (3.5-5.0); Total Bilirubin 1.1 mg/dL (0.2-1.0); Total Protein 6.2 g/dL (6.4-8.9)
[2017-03-17 08:19] LABS: Add Path Review? YES; Eosinophils % 1 % (0-6); Hypochromasia 1+; Immature Granulocytes 11 % (0-9); Neutrophil % 69 % (38-83)
[2017-03-17 08:20] LABS: Microcytosis 1+
--- NOTE | 2017-03-17 08:51 | PN ---
Progress Note - Progress Note SOAP: Subjective: feels terrible this morning still. He reports continued ongoing diarrhea. denies any abdominal pain at all. reports that all he has eaten since tuesday is one bowl of rice crispies and one jello, mainly because he is afraid of getting diarrhea. he denies nausea. he has lost ~12 lbs since March 03. Objective: Vital Signs Temp Pulse Resp BP Pulse Ox 98.4 F 62 16 95/49 99 03/17/17 05:08 03/17/17 05:08 03/17/17 05:08 03/17/17 05:08 03/17/17 05:08 very thin, lying in bed in NAD perr eomi op dry cta bl s1 s2 nl soft nt +bs no le edema A+O x 3, nonfocal neurological exam Laboratory Results - last 24 hr 03/17/17 03/17/17 03/17/17 06:56 06:56 08:15 WBC 5.0 RBC 3.07 L Hgb 9.5 L Hct 28 L MCV 93 MCH 31 MCHC 33 RDW 17 H Plt Count 78 L MPV 7 L Immature Gran % (Auto) 11 H Neut % (Auto) 77.6 Lymph % (Auto) 8.5 L Murray % (Auto) 13.0 H Eos % (Auto) 0.6 Baso % (Auto) 0.3 Absolute Neuts (auto) 3.9 Absolute Lymphs (auto) 0.4 L Absolute Monos (auto) 0.7 Absolute Eos (auto) 0 Absolute Basos (auto) 0 Absolute Nucleated RBC 0 Neutrophils % 69 Band Neutrophils % 11 H Lymphocytes % 16 L Monocytes % 3 Eosinophils % 1 Nucleated RBC % 0 Normal RBC Morphology Not Reportable Hypochromasia 1+ Microcytosis 1+ Sodium 134 Potassium 3.3 L Chloride 106 Carbon Dioxide 22 Anion Gap 6 BUN 20 Creatinine 0.77 Est GFR ( Amer) 128.4 Est GFR (Non-Af Amer) 99.9 BUN/Creatinine Ratio 26.0 H Glucose 109 H POC Glucose (mg/dL) 135 H Calcium 8.9 Total Bilirubin 1.10 H AST 20 ALT 14 Alkaline Phosphatase 178 H Total Protein 6.2 L Albumin 3.1 L Globulin 3.1 Albumin/Globulin Ratio 1.0 Amylase [address] A/P: I have personally reviewed this. there is a 4 cm mass or collection at the pancreatic head. diffuse reticulation of the mesentery, peripancreatic stranding suggestive of pancreatitis, and diffuse thickening of the colon. Acetaminophen (Tylenol Tab*) 650 mg PO Q6H PRN PRN Reason: TEMP>101 CALL Last Admin: 03/17/17 06:58 Dose: 650 mg Heparin Sodium (Porcine) (Heparin Vial(*)) 5,000 units SUBCUT Q8HR [facility] Last Admin: 03/17/17 06:58 Dose: 5,000 units Potassium Chloride/Sodium Chloride (Ns 0.9% W/ 40 Meq Kcl 1000 Ml*) 1,000 mls @ 150 mls/hr IV PER RATE [facility] Last Admin: 03/17/17 06:58 Dose: 150 mls/hr Potassium Chloride (Potassium Chloride 20 Meq/100 Ml Ivpremix*) 20 meq in 100 mls @ 50 mls/hr IV Q2H [facility] Stop: 03/17/17 15:59 Pantoprazole Sodium (Protonix Iv*) 40 mg IV Q24H [facility] Last Admin: 03/16/17 15:44 Dose: 40 mg Prochlorperazine (Compazine Tab*) 10 mg PO Q6H PRN PRN Reason: NAUSEA Ursodiol (Actigall Cap*) 300 mg PO BID [facility] Last Admin: 03/16/17 22:12 Dose: Not Given Assessment: 71 yo M w PMH of chron's disease and pancreatic cancer sp whipple complicated postoperatively by infection/abscess, now on adjuvant gemcitabine presenting with 6 days of voluminous diarrhea without abdominal pain. His CT is very complicated and shows suggestion of colitis, pancreatitis, and possible cancer recurrence with a mass/collection in the pancreatic head resection bed. Plan: CT findings: colitis is most consistent with his clinical presentation. It does seem a little acute for chron's colitis and there is no blood in the stool. c diff was negative and so c diff precautions can be stopped. I have discussed with Dr. Eric who will come evaluate patient and help weigh in on either antibiotics or antidiarrheals. pancreatitis: seen on imaging PLUS significantly elevated lipase. clinically however lacks any abdominal pain (though does have anorexia). CT scan reports stent migration. Dr. Eric will evaluate and review with Dr. Marquis. -NPO for now peripancreatic mass: most suspicious for recurrence, though differential includes fluid collection/ abscess. he will need to have this addressed when colitis resolves. I do NOT think CA 19-9 would be of use at this time given clear intra-abdominal inflammation (it will most certainly be elevated) hypokalemia: very likely related to ongoing diarrhea check magnesium as well sc heparin DVT prophylaxis full code
[2017-03-17] MEDS ORDERED: NS 0.9% 1000 ML* 2,000 ML IV ONE (09:05)
[2017-03-17 09:19] LABS: Magnesium 1.7 mg/dL (1.9-2.7)
[2017-03-17] MEDS: Ursodiol CAP* 300 MG PO SCH ×2 (10:57→20:58)
[2017-03-17] MEDS: KCL 20 MEQ/100 ML IVPREMIX* 20 MEQ/100 ML BAG IV SCH ×3 (11:28→16:37)
[2017-03-17] MEDS: Pantoprazole IV* 40 MG IV SCH (14:13)
[2017-03-17] MEDS: RiFAXimin* 550 MG TAB PO SCH (20:58)
[2017-03-18] MEDS: NS 0.9% w/ 40 Meq KCL 1000 ML* 1,000 ML IV SCH ×4 (02:29→22:42)
[2017-03-18] MEDS: Heparin VIAL(*) 5000 UNITS/ML VIAL (FIVE THOUSAND) SUBCUT SCH ×3 (05:42→21:23)
[2017-03-18 06:03] LABS: Hematocrit 26 % (42-52); Hemoglobin 8.7 g/dl (14.0-18.0); Mean Corpuscular HGB Conc 33 g/dl (31-36); Mean Corpuscular Hemoglobin 31 pg (27-31); Mean Corpuscular Volume 94 fL (80-94); Mean Platelet Volume 8 um3 (7.4-10.4); Red Cell Distribution Width 18 % (10.5-15); White Blood Count 4.3 10^3/ul (3.5-10.8)
[2017-03-18 06:04] LABS: Comments Flag Yes
[2017-03-18 06:23] LABS: Albumin 2.7 g/dL (3.2-5.2); BUN/Creatinine Ratio 26.1 (8-20); Calcium 8.4 mg/dL (8.6-10.3); EGFR African American 145.8 (>60); EGFR Non-African American 113.4 (>60); Globulin 2.9 g/dL (2-4); Magnesium 1.7 mg/dL (1.9-2.7); Potassium 4.1 mmol/L (3.5-5.0); Total Bilirubin 0.9 mg/dL (0.2-1.0); Total Protein 5.6 g/dL (6.4-8.9)
[2017-03-18] MEDS: RiFAXimin* 550 MG TAB PO SCH ×2 (08:22→21:22)
[2017-03-18] MEDS: Ursodiol CAP* 300 MG PO SCH ×2 (08:22→21:22)
[2017-03-18] MEDS: Pantoprazole IV* 40 MG IV SCH (15:41)
[2017-03-18] MEDS: Acetaminophen TAB* 325 MG PO PRN (21:22)
[2017-03-19] MEDS: NS 0.9% w/ 40 Meq KCL 1000 ML* 1,000 ML IV SCH ×3 (05:15→18:20)
[2017-03-19] MEDS: Heparin VIAL(*) 5000 UNITS/ML VIAL (FIVE THOUSAND) SUBCUT SCH ×3 (05:17→20:04)
[2017-03-19 06:05] LABS: BUN/Creatinine Ratio 27.5 (8-20); Calcium 8.5 mg/dL (8.6-10.3); EGFR African American 145.8 (>60); EGFR Non-African American 113.4 (>60); Potassium 4.1 mmol/L (3.5-5.0)
--- NOTE | 2017-03-19 08:06 | PN ---
Progress Note - Progress Note SOAP: Subjective: he feels that the diarrhea may be slowing down a bit. 7 bowel movements in the last 12 hours. no nausea or vomiting. "I am starving to ". interested in transfer to [facility] Tuesday if no improvement. Objective: Vital Signs Temp Pulse Resp BP Pulse Ox 98.9 F 65 16 98/48 98 03/19/17 07:17 03/19/17 07:17 03/19/17 07:17 03/19/17 07:17 03/19/17 07:17 lying flat in NAD perr eomi op moist cta bl s1 s2 nl soft nt hyperactive bowel sounds no le edema clean port A+O x 3, nonfocal neurological exam Laboratory Results - last 24 hr 03/18/17 03/18/17 03/19/17 08:05 18:03 05:30 Sodium 140 Potassium 4.1 Chloride 116 H Carbon Dioxide 17 L Anion Gap 7 BUN 19 Creatinine 0.69 Est GFR ( Amer) 145.8 Est GFR (Non-Af Amer) 113.4 BUN/Creatinine Ratio 27.5 H Glucose 83 POC Glucose (mg/dL) 95 98 Calcium 8.5 L Acetaminophen (Tylenol Tab*) 650 mg PO Q6H PRN PRN Reason: TEMP>101 CALL Last Admin: 03/18/17 21:22 Dose: 650 mg Heparin Sodium (Porcine) (Heparin Vial(*)) 5,000 units SUBCUT Q8HR [facility] Last Admin: 03/19/17 05:17 Dose: Not Given Potassium Chloride/Sodium Chloride (Ns 0.9% W/ 40 Meq Kcl 1000 Ml*) 1,000 mls @ 150 mls/hr IV PER RATE [facility] Last Admin: 03/19/17 05:15 Dose: 150 mls/hr Pantoprazole Sodium (Protonix Iv*) 40 mg IV Q24H [facility] Last Admin: 03/18/17 15:41 Dose: 40 mg Prochlorperazine (Compazine Tab*) 10 mg PO Q6H PRN PRN Reason: NAUSEA Rifaximin (Xifaxan*) 550 mg PO BID [facility] Last Admin: 03/18/17 21:22 Dose: 550 mg Ursodiol (Actigall Cap*) 300 mg PO BID [facility] Last Admin: 03/18/17 21:22 Dose: 300 mg Assessment: 71 yo M w crohn's colitis and pancreatic CA on adjuvant gemcitabine admitted with diarrhea and CT findings of colitis, pancreatitis and an abdominal mass. Plan: Diarrhea: maybe slightly less on rifaxamin. will discuss with GI starting steroids today severe protein calorie malnutrition: recommended consideration of TPN but he reports that this made him feel "terrible" at [facility] and he wants to hold off for now. check prealbumin will discuss with GI resuming POs now that enzymatically pancreatitis seems better pancreatitis: unclear if this was clinically relevant given the lack of abdominal pain will discuss with GI resuming POs and will follow enzymes in am pancreatic mass: suspicious for recurrence. I do note that Dr. Diaz ordered CA 19-9. Caveat that any inflammatory process can elevate this so with colitis and pancreatic inflammation I would interpret with caution hypokalemia: cont NS with 40 MEQ kcl while having this amount of diarrhea full code
[2017-03-19] MEDS: Ursodiol CAP* 300 MG PO SCH ×2 (08:44→20:09)
[2017-03-19] MEDS: RiFAXimin* 550 MG TAB PO SCH ×2 (08:44→20:09)
[2017-03-19] MEDS: Pancrelipase CAP* 5,000 UNITS CAP PO SCH ×2 (12:18→17:53)
[2017-03-19] MEDS: Pantoprazole IV* 40 MG IV SCH (14:47)
[2017-03-19] MEDS: Acetaminophen TAB* 325 MG PO PRN (22:33)
[2017-03-20] MEDS: NS 0.9% w/ 40 Meq KCL 1000 ML* 1,000 ML IV SCH ×3 (01:11→15:23)
[2017-03-20] MEDS: Heparin VIAL(*) 5000 UNITS/ML VIAL (FIVE THOUSAND) SUBCUT SCH ×3 (04:34→20:00)
[2017-03-20 05:12] LABS: Hematocrit 27 % (42-52); Hemoglobin 8.8 g/dl (14.0-18.0); Mean Corpuscular HGB Conc 33 g/dl (31-36); Mean Corpuscular Hemoglobin 31 pg (27-31); Mean Corpuscular Volume 93 fL (80-94); Mean Platelet Volume 8 um3 (7.4-10.4); Red Blood Count 2.86 10^6/ul (4.0-5.4); Red Cell Distribution Width 18 % (10.5-15); White Blood Count 4.3 10^3/ul (3.5-10.8)
[2017-03-20 05:21] LABS: Albumin 2.4 g/dL (3.2-5.2); Calcium 8.2 mg/dL (8.6-10.3); EGFR African American 148.3 (>60); EGFR Non-African American 115.3 (>60); Globulin 2.6 g/dL (2-4); Potassium 4.1 mmol/L (3.5-5.0); Total Bilirubin 0.6 mg/dL (0.2-1.0)
[2017-03-20] MEDS: Pancrelipase CAP* 5,000 UNITS CAP PO SCH ×4 (08:35→17:07)
[2017-03-20] MEDS: RiFAXimin* 550 MG TAB PO SCH ×2 (08:35→20:04)
[2017-03-20] MEDS: Ursodiol CAP* 300 MG PO SCH ×2 (08:35→20:04)
[2017-03-20] MEDS: Pantoprazole IV* 40 MG IV SCH (12:43)
--- NOTE | 2017-03-20 15:13 | PN ---
Subjective Date of Service: 03/20/17 Interval History: The patient feels he has abouyt the same volume of diarrhea but in less frequent and larger passages. BM's still druing the night. Little pain, doesn' t want any anlagesic. Appetite fair. No new c/o. Objective Active Medications: Acetaminophen (Tylenol Tab*) 650 mg PO Q6H PRN PRN Reason: TEMP>101 CALL Last Admin: 03/19/17 22:33 Dose: 650 mg Heparin Sodium (Porcine) (Heparin Vial(*)) 5,000 units SUBCUT Q8HR [facility] Last Admin: 03/20/17 12:47 Dose: Not Given Potassium Chloride/Sodium Chloride (Ns 0.9% W/ 40 Meq Kcl 1000 Ml*) 1,000 mls @ 75 mls/hr IV PER RATE [facility] Pancrelipase (Zenpep Delayed Cap*) 5,000 units PO TID AC [facility] Last Admin: 03/20/17 12:44 Dose: 5,000 units Pantoprazole Sodium (Protonix Iv*) 40 mg IV Q24H [facility] Last Admin: 03/20/17 12:43 Dose: 40 mg Prochlorperazine (Compazine Tab*) 10 mg PO Q6H PRN PRN Reason: NAUSEA Rifaximin (Xifaxan*) 550 mg PO BID [facility] Last Admin: 03/20/17 08:35 Dose: 550 mg Ursodiol (Actigall Cap*) 300 mg PO BID [facility] Last Admin: 03/20/17 08:35 Dose: 300 mg Vital Signs 03/19/17 03/19/17 03/19/17 18:20 20:00 22:29 Temperature 98.2 F 99.3 F 100.9 F Pulse Rate 87 76 80 Respiratory 16 16 17 Rate Blood Pressure 116/63 117/57 104/52 (mmHg) O2 Sat by Pulse 98 100 97 Oximetry 03/20/17 03/20/17 03/20/17 02:43 07:53 08:58 Temperature 98.7 F 99.7 F Pulse Rate 59 71 Respiratory 16 16 18 Rate Blood Pressure 90/48 96/52 (mmHg) O2 Sat by Pulse 97 96 Oximetry 03/20/17 11:18 Temperature 98.9 F Pulse Rate 72 Respiratory 16 Rate Blood Pressure 88/47 (mmHg) O2 Sat by Pulse 96 Oximetry Oxygen Devices in Use Now: None Appearance: Alert, supine in bed. In good spirits. Looks comfortable. Eyes: No Scleral Icterus Neck: NL Appearance and Movements; NL JVP, No Thyroid Enlargement, Masses Abdominal: No Hepatosplenomegaly, - - sl distended. Soft. Nl BS. Extremities: No Edema, No Clubbing, Cyanosis, - Skin: No Rash or Ulcers, No Nodules or Sclerosis, - Neurological: Alert and Oriented x 3, NL Sensation Result Diagrams: 03/20/17 04:50 03/20/17 04:50 Microbiology and Other Data: Microbiology 03/19/17 12:04 Stool Gross Appearance - Final Stool 03/16/17 16:20 Stool Gross Appearance - Final Stool Stool Lactoferrin - Final Stool Occult Blood (MARIA ALEJANDRA) - Final Assess/Plan/Problems-Billing Assessment: - Patient Problems (1) Crohns disease Current Visit: No Status: Acute Code(s): K50.90 - CROHN'S DISEASE, UNSPECIFIED, WITHOUT COMPLICATIONS SNOMED Code(s): 48633270 Comment: Mild as of 06/2014, recommendation was for repeat colonoscopy in 3 yrs. (2) Pancreatic cancer Current Visit: Yes Status: Acute Comment: Whipple 07/2016, adjuvant gemcitabine given. 4 cm mass in pacrease reported, likely will be sent for endoscopic US. (3) Diarrhea Current Visit: Yes Status: Acute Code(s): R19.7 - DIARRHEA, UNSPECIFIED SNOMED Code(s): 04142530 Comment: Although had C. diff in 10/19, pt states he had 3 neg tests for it since his treatment was completed. Reduce IV to 75 ml/hr in anticipation of discharge soon. Pt advised to drink a n adequate amount.
[2017-03-21] MEDS: Heparin VIAL(*) 5000 UNITS/ML VIAL (FIVE THOUSAND) SUBCUT SCH ×3 (04:48→21:01)
[2017-03-21] MEDS: NS 0.9% w/ 40 Meq KCL 1000 ML* 1,000 ML IV SCH ×2 (04:54→19:48)
[2017-03-21 05:32] LABS: BUN/Creatinine Ratio 19.4 (8-20); Blood Urea Nitrogen 12 mg/dL (6-24); CO2 Carbon Dioxide 21 mmol/L (22-32); Calcium 8.1 mg/dL (8.6-10.3); Chloride 113 mmol/L (101-111); EGFR African American 164.9 (>60); EGFR Non-African American 128.3 (>60); Glucose 122 mg/dL (70-100); Potassium 3.9 mmol/L (3.5-5.0); Sodium 133 mmol/L (133-145)
[2017-03-21] MEDS: RiFAXimin* 550 MG TAB PO SCH ×2 (08:44→21:05)
[2017-03-21] MEDS: Pancrelipase CAP* 5,000 UNITS CAP PO SCH ×3 (08:44→17:27)
[2017-03-21] MEDS: Ursodiol CAP* 300 MG PO SCH ×2 (08:44→21:05)
--- NOTE | 2017-03-21 10:56 | PN ---
Progress Note - Progress Note SOAP: Subjective: []Diarrhea continues. Eating regular diet and has increased volume of stool. Watery, green stool. No abdominal pain, no fevers. Had been on antibiotics on admission, stopped. Has not eaten much in two weeks not and is loosing weight. Acetaminophen (Tylenol Tab*) 650 mg PO Q6H PRN PRN Reason: TEMP>101 CALL Last Admin: 03/19/17 22:33 Dose: 650 mg Heparin Sodium (Porcine) (Heparin Vial(*)) 5,000 units SUBCUT Q8HR [facility] Last Admin: 03/21/17 04:48 Dose: Not Given Potassium Chloride/Sodium Chloride (Ns 0.9% W/ 40 Meq Kcl 1000 Ml*) 1,000 mls @ 75 mls/hr IV PER RATE [facility] Last Admin: 03/21/17 04:54 Dose: 75 mls/hr Loperamide HCl (Imodium Cap*) 2 mg PO QID [facility] Pancrelipase (Zenpep Delayed Cap*) 5,000 units PO TID AC [facility] Last Admin: 03/21/17 08:44 Dose: 5,000 units Pantoprazole Sodium (Protonix Iv*) 40 mg IV Q24H [facility] Last Admin: 03/20/17 12:43 Dose: 40 mg Prochlorperazine (Compazine Tab*) 10 mg PO Q6H PRN PRN Reason: NAUSEA Rifaximin (Xifaxan*) 550 mg PO BID [facility] Last Admin: 03/21/17 08:44 Dose: 550 mg Ursodiol (Actigall Cap*) 300 mg PO BID [facility] Last Admin: 03/21/17 08:44 Dose: 300 mg Objective: [] Vital Signs Temp Pulse Resp BP Pulse Ox 98.6 F 73 16 88/46 96 03/21/17 07:21 03/21/17 07:21 03/21/17 07:21 03/21/17 07:21 03/21/17 07:21 No distress HEENT - pale and thin. mucosa moist CTA RRR S1S2 Diffuse ascities non tender, no liver edge. Has BS Tr edema Assessment: []71 year old with history of pancreatic cancer, whipple with extensive post operative complications. Has been on adjuvant chemotherapy with gemcitabine and tolerating well. Now with almost 2 weeks of abrupt onset diarrhea. No other evidence of infection. He has positive stool leukocyets, negative or enteric pathogens, Cdiff and giardia. CT with fluid collection at site of prior surgery , question of abscess, variability in liver. Plan: []1. Diarrhea. Question of infection or inflammatory. Will start Imodium and to go low residual diet. Seen by Dr. Diaz, will discuss case with GI. 2. Lennie-pancreatic mass. Differential is abscess, fistula, or recurrent cancer. Will check CA 19-9 but could be elevated from either. Will likely need US or CT guided biopsy and or drainage. Currently off antibiotics 3. Pancreatic Cancer. Hold chemotherapy and will need evaluation for recurrent disease. Will check US liver. 4. Disposition. He would like evaluation at [facility], I will contact his surgeon Re transfer. time with patient and chart 50 min
[2017-03-21] MEDS: Loperamide CAP* 2 MG PO SCH ×3 (12:29→21:04)
[2017-03-21] MEDS: Pantoprazole IV* 40 MG IV SCH (14:04)
[2017-03-21 21:34] VITALS: BP 109/54
--- NOTE | 2017-03-22 07:57 | DS ---
TRANSFER SUMMARY FOR IMMEDIATE RESPONSE: DATE OF ADMISSION: 03/16/17. DATE OF POSSIBLE TRANSFER TO [facility]: 03/21/17. PRINCIPAL DIAGNOSIS: Uncontrolled diarrhea, question etiology. OTHER DIAGNOSES: Include: 1. Pancreatic cancer. 2. Peripancreatic mass 3. History of Crohn's disease. 4. Deep venous thrombosis prophylaxis in place. 5. History of acute jaundice. 6. History of gastroesophageal reflux disease. 7. Prediabetes. CODE STATUS: The patient is a full code status. He has had electrolyte abnormalities. Discharge medications/med rec conciliation will be supplied with this discharge transfer packet. Briefly, the patient has been admitted for uncontrolled diarrhea with significant weight loss, status post Gemzar chemotherapy approximately 3 weeks ago. He had had uncontrolled diarrhea for which he has had infectious disease consult and GI consult here at the [facility]. In addition, he did have a CT scan of the abdomen and pelvis during his hospital stay, which revealed nonspecific long segment mild mural thickening of the colon with air fluid levels, colonic diverticulosis without findings of diverticulitis. Enlargement of mass/lesions at the level of peripancreatic area and the pancreatic head, status post Whipple procedure and anastomosis. Interval rightward migration of the pancreatic stent and CT stigmata of probable acute pancreatitis, persistent small volume of ascites with reticulation throughout the abdominal fat and unchanged well circumscribed water density lesions at the dome of the left hepatic lobe dominant 2.1 cm lesion. A copy of that report is going with the transfer summary. He also had stool specimens, which was positive for lactoferrin, negative for occult bleed, negative for C. diff or ova and parasite. Briefly, the patient was admitted to the hospital with uncontrolled diarrhea and placed on Imodium and aggressive fluid hydration. His electrolytes were repleted as necessary and the above consultations were initiated. He has also had negative for Shiga toxin 1 and 2 and negative for Cryptosporidium and Giardia. He was originally placed on antibiotics and later stepped off as he was afebrile. He has required potassium electrolyte repletion as his potassium was significantly depleted upon his admission. The patient's surgeon is in the [facility] and the patient is requesting an evaluation with his surgeon and will be transferred to that higher level of care at [facility]. He is in a stable condition, afebrile and his blood pressure is stable. HARRIETT SNOW [id number]/[facility] #: [id number] [facility]
== END 2017-03-21 23:45 | disposition short-term general hospital (02) | DRG 391 ==
LOC: MED 14:07
PROVIDERS: ADMIT Internal Medicine Hematology & Oncology; ATTEND Internal Medicine Hematology & Oncology
DX: K52.9 Noninfective gastroenteritis and colitis, unspecified (principal); K85.90 Acute pancreatitis without necrosis or infection, unspecified; E43 Unspecified severe protein-calorie malnutrition; C25.9 Malignant neoplasm of pancreas, unspecified; K50.90 Crohn's disease, unspecified, without complications; E86.0 Dehydration; E87.6 Hypokalemia; R19.09 Other intra-abdominal and pelvic swelling, mass and lump; R73.03 Prediabetes; Z68.21 Body mass index [BMI] 21.0-21.9, adult; Z79.1 Long term (current) use of non-steroidal anti-inflammatories (NSAID); Z83.3 Family history of diabetes mellitus; Z82.49 Family history of ischemic heart disease and other diseases of the circulatory system; Z80.0 Family history of malignant neoplasm of digestive organs; Z87.891 Personal history of nicotine dependence
CPT/HCPCS: 1036F; 36415; 36591; 74020; 74176; 80048; 80053; 82150; 82272; 83630; 83690; 83735; 84134; 85025; 85060; 85652; 86140; 86301; 87045; 87046; 87328; 87329; 87493; 87899; 93005; 96360; 96361; 99214; 99222; 99232; 99233; A9270-GY; G0463; G8427; J1642; J1644; J3480

== ENCOUNTER 2017-05-31 18:19 | Inpatient (IN) | payer MEDICARE, BC ==
[2017-05-31] MEDS ORDERED: chlorproMAZINE INJ* 25 MG/ML 2 ML (50 MG) IV ONE (21:41)
[2017-05-31] MEDS ORDERED: Morphine INJ* 4 MG/ML 1 ML SYRINGE IV ONE (21:43)
[2017-05-31 22:18] LABS: Hematocrit 34 % (42-52); Hemoglobin 11.2 g/dl (14.0-18.0); Mean Corpuscular HGB Conc 33 g/dl (31-36); Mean Corpuscular Hemoglobin 33 pg (27-31); Mean Corpuscular Volume 98 fL (80-94); Mean Platelet Volume 8 um3 (7.4-10.4); Red Blood Count 3.42 10^6/ul (4.0-5.4); Red Cell Distribution Width 19 % (10.5-15); White Blood Count 10.1 10^3/ul (3.5-10.8)
[2017-05-31 22:29] LABS: ALT 31 U/L (7-52); AST 57 U/L (13-39); Albumin 2.9 g/dL (3.2-5.2); Alkaline Phosphatase 350 U/L (34-104); Anion Gap 7 mmol/L (2-11); BUN/Creatinine Ratio 25.8 (8-20); Blood Urea Nitrogen 17 mg/dL (6-24); CO2 Carbon Dioxide 26 mmol/L (22-32); Calcium 8.8 mg/dL (8.6-10.3); Chloride 96 mmol/L (101-111); EGFR African American 153.5 (>60); EGFR Non-African American 119.3 (>60); Globulin 3.6 g/dL (2-4); Glucose 118 mg/dL (70-100); Lipase < 10 U/L (11.0-82.0); Magnesium 1.8 mg/dL (1.9-2.7); Potassium 4.5 mmol/L (3.5-5.0); Sodium 129 mmol/L (133-145); Total Protein 6.5 g/dL (6.4-8.9)
[2017-05-31 22:31] LABS: Troponin I 0.01 ng/mL (<0.04)
[2017-05-31 22:41] LABS: Urine Bilirubin 2+ (Negative); Urine Glucose Negative (Negative); Urine Nitrite Negative (Negative)
[2017-06-01] MEDS ORDERED: HYDROmorphone* 1 MG/ML 1 ML SYR IV SLOW PU PRN (00:41)
[2017-06-01] MEDS ORDERED: Ondansetron INJ* 2 MG/ML VIAL IV PRN (00:41)
[2017-06-01] MEDS ORDERED: chlorproMAZINE INJ* 25 MG/ML 2 ML (50 MG) IV PRN (02:28)
[2017-06-01] MEDS: PROCHLORPERAZINE INJ 5 MG/ML 2 ML VIAL IV PRN ×2 (03:02→18:11)
[2017-06-01] MEDS: Morphine TAB Extended Release (*) 15 MG TAB.ER PO SCH ×2 (03:03→14:14)
[2017-06-01] MEDS: NS 0.9% IV PRN ×2 (03:15→11:23)
[2017-06-01] MEDS: CHLORPROMAZINE IV PRN ×2 (03:15→11:23)
--- NOTE | 2017-06-01 03:49 | ED ---
Ruth Upton Thomas, scribed for Markos Shaw on 05/31/17 at 2143 . Shortness of Breath - HPI Summary HPI Summary: The pt is a 71 y/o M presenting to the ED c/o SOB that began today at 18:00. The SOB is aggravated and alleviated by nothing. The patient took his prescribed morphine pill as well as Zofran earlier today. Pt additionally c/o hiccups (constant, onset a week ago, for which was instructed to take Benadryl) , nausea, and leg swelling (onset 3 or 4 weeks ago). Pt denies fever and vomiting. He has a Hx of pancreatic cancer with a Whipple procedure performed ( 07/30/16) as well as chemotherapy. His last course of chemotherapy was . He denies any radiation therapy. His oncologist is Dr. Tamez. Four days ago, the pt had ascites drainage performed at [facility]. At that time, his hiccups were intermittent, although by today his hiccups are constant. PMHx: pancreatic cancer, chemotherapy. PSHx: Whipple procedure, cholecystectomy, ascites drainage. SHx: former smoker, no alcohol use. - History of Current Complaint Chief Complaint: EDShortnessOfBreath Time Seen by Provider: 05/31/17 21:18 Hx Obtained From: Patient Onset/Duration: Sudden Onset - today at 18:00, Still Present Timing: Constant Aggrevating Factors: Nothing Alleviating Factors: Nothing Associated Signs & Symptoms: Edema - leg - Allergy/Home Medications Allergies/Adverse Reactions: Allergies Allergy/AdvReac Type Severity Reaction Status Date / Time No Known Allergies Allergy Verified 05/31/17 08:41 PMH/Surg Hx/FS Hx/Imm Hx Previously Healthy: No Endocrine/Hematology History: Reports: Hx Diabetes Cardiovascular History: Denies: Hx Hypertension, Hx Pacemaker/ICD GI History: Reports: Hx Crohn's Disease History: Denies: Hx Dialysis, Hx Renal Disease Sensory History: Reports: Hx Contacts or Glasses Denies: Hx Hearing Aid Opthamlomology History: Reports: Hx Contacts or Glasses Psychiatric History: Denies: Hx Eating Disorder, Hx Panic Disorder, Hx of Violent Episodes Against Others - Cancer History Cancer Type, 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 pancreatic CA Hx Chemotherapy: Yes - Surgical History Surgery Procedure, Year, and Place: TONSILLECTOMY, CHOLECYSTECTOMY,right knee, SQUAMOUS CELL CA REMOVALS. whipple 07/30/16 Infectious Disease History: No Infectious Disease History: Reports: Hx Clostridium Difficile - 11/2016 Denies: Hx of Known/Suspected MRSA, Traveled Outside the [place] in Last 30 Days - Family History Known Family History: Positive: Hypertension - Social History Alcohol Use: None Hx Substance Use: No Substance Use Type: Reports: None Hx Tobacco Use: Yes Smoking Status (MU): Former Smoker Review of Systems Negative: Fever Positive: Shortness Of Breath - onset today at 18:00, Other - POS: hiccups ( constant and for a week) Positive: Nausea. Negative: Vomiting Positive: Edema - leg All Other Systems Reviewed And Are Negative: Yes Physical Exam Triage Information Reviewed: Yes Vital Signs On Initial Exam: Initial Vitals Temp Pulse Resp BP Pulse Ox 98.0 F 110 19 130/90 97 05/31/17 18:21 05/31/17 18:21 05/31/17 18:21 05/31/17 18:21 05/31/17 18:21 Vital Signs Reviewed: Yes Appearance: Positive: Well-Appearing, No Pain Distress Skin: Positive: Warm, Skin Color Reflects Adequate Perfusion, Dry Head/Face: Positive: Normal Head/Face Inspection Eyes: Positive: EOMI, QUANG ENT: Positive: Normal ENT inspection Neck: Positive: Supple, Nontender Respiratory/Lung Sounds: Positive: Clear to Auscultation, Breath Sounds Present Cardiovascular: Positive: RRR, Pulses are Symmetrical in both Upper and Lower Extremities Abdomen Description: Positive: Soft, Distended Bowel Sounds: Positive: Present Musculoskeletal: Positive: Strength/ROM Intact, Edema Left, Edema Right Neurological: Positive: Normal, Sensory/Motor Intact, Alert, Oriented to Person Place, Time - [place] Coma Scale Coma Scale Total: 15 Diagnostics - Vital Signs Vital Signs Temp Pulse Resp BP Pulse Ox 05/31/17 18:53 99.5 F 104 22 131/79 99 05/31/17 18:21 98.0 F 110 19 130/90 97 - Laboratory Lab Results: Lab Results 05/31/17 05/31/17 05/31/17 Range/Units 21:45 21:45 21:45 WBC 10.1 (3.5-10.8) 10^3/ul RBC 3.42 L (4.0-5.4) 10^6/ul Hgb 11.2 L (14.0-18.0) g/dl Hct 34 L (42-52) % MCV 98 H (80-94) fL MCH 33 H (27-31) pg MCHC 33 (31-36) g/dl RDW 19 H (10.5-15) % Plt Count 275 (150-450) 10^3/ul MPV 8 (7.4-10.4) um3 Neut % (Auto) 84.6 H (38-83) % Lymph % (Auto) 3.6 L (25-47) % [place] % (Auto) 10.6 H (1-9) % Eos % (Auto) 0.8 (0-6) % Baso % (Auto) 0.4 (0-2) % Absolute Neuts (auto) 8.6 H (1.5-7.7) 10^3/ul Absolute Lymphs (auto) 0.4 L (1.0-4.8) 10^3/ul Absolute Monos (auto) 1.1 H (0-0.8) 10^3/ul Absolute Eos (auto) 0.1 (0-0.6) 10^3/ul Absolute Basos (auto) 0 (0-0.2) 10^3/ul Absolute Nucleated RBC 0 10^3/ul Nucleated RBC % 0 INR (Anticoag Therapy) 1.20 H (0.89-1.11) APTT 30.7 (26.0-36.3) seconds Sodium (133-145) mmol/L Potassium (3.5-5.0) mmol/L Chloride (101-111) mmol/L Carbon Dioxide (22-32) mmol/L Anion Gap (2-11) mmol/L BUN (6-24) mg/dL Creatinine (0.67-1.17) mg/dL Est GFR ( Amer) (>60) Est GFR (Non-Af Amer) (>60) BUN/Creatinine Ratio (8-20) Glucose (70-100) mg/dL Lactic Acid (0.5-2.0) mmol/L Calcium (8.6-10.3) mg/dL Magnesium (1.9-2.7) mg/dL Total Bilirubin (0.2-1.0) mg/dL AST (13-39) U/L ALT (7-52) U/L Alkaline Phosphatase (34-104) U/L Troponin I (<0.04) ng/mL B-Natriuretic Peptide 42 ( - 100) pg/mL Total Protein (6.4-8.9) g/dL Albumin (3.2-5.2) g/dL Globulin (2-4) g/dL Albumin/Globulin Ratio (1-3) Lipase (11.0-82.0) U/L Urine Color Urine Appearance Urine pH (5-9) Ur Specific [place] (1.010-1.030) Urine Protein (Negative) Urine Ketones (Negative) Urine Blood (Negative) Urine Nitrate (Negative) Urine Bilirubin (Negative) Urine Urobilinogen (Negative) Ur Leukocyte Esterase (Negative) Urine Glucose (Negative) 05/31/17 05/31/17 05/31/17 Range/Units 21:45 21:45 22:30 WBC (3.5-10.8) 10^3/ul RBC (4.0-5.4) 10^6/ul Hgb (14.0-18.0) g/dl Hct (42-52) % MCV (80-94) fL MCH (27-31) pg MCHC (31-36) g/dl RDW (10.5-15) % Plt Count (150-450) 10^3/ul MPV (7.4-10.4) um3 Neut % (Auto) (38-83) % Lymph % (Auto) (25-47) % [place] % (Auto) (1-9) % Eos % (Auto) (0-6) % Baso % (Auto) (0-2) % Absolute Neuts (auto) (1.5-7.7) 10^3/ul Absolute Lymphs (auto) (1.0-4.8) 10^3/ul Absolute Monos (auto) (0-0.8) 10^3/ul Absolute Eos (auto) (0-0.6) 10^3/ul Absolute Basos (auto) (0-0.2) 10^3/ul Absolute Nucleated RBC 10^3/ul Nucleated RBC % INR (Anticoag Therapy) (0.89-1.11) APTT (26.0-36.3) seconds Sodium 129 L (133-145) mmol/L Potassium 4.5 (3.5-5.0) mmol/L Chloride 96 L (101-111) mmol/L Carbon Dioxide 26 (22-32) mmol/L Anion Gap 7 (2-11) mmol/L BUN 17 (6-24) mg/dL Creatinine 0.66 L (0.67-1.17) mg/dL Est GFR ( Amer) 153.5 (>60) Est GFR (Non-Af Amer) 119.3 (>60) BUN/Creatinine Ratio 25.8 H (8-20) Glucose 118 H (70-100) mg/dL Lactic Acid 1.3 (0.5-2.0) mmol/L Calcium 8.8 (8.6-10.3) mg/dL Magnesium 1.8 L (1.9-2.7) mg/dL Total Bilirubin 9.30 H (0.2-1.0) mg/dL AST 57 H (13-39) U/L ALT 31 (7-52) U/L Alkaline Phosphatase 350 H (34-104) U/L Troponin I 0.01 (<0.04) ng/mL B-Natriuretic Peptide ( - 100) pg/mL Total Protein 6.5 (6.4-8.9) g/dL Albumin 2.9 L (3.2-5.2) g/dL Globulin 3.6 (2-4) g/dL Albumin/Globulin Ratio 0.8 L (1-3) Lipase < 10 L (11.0-82.0) U/L Urine Color [place]eta Urine Appearance Clear Urine pH 5.0 (5-9) Ur Specific [place] 1.019 (1.010-1.030) Urine Protein Negative (Negative) Urine Ketones Negative (Negative) Urine Blood Negative (Negative) Urine Nitrate Negative (Negative) Urine Bilirubin 2+ (Negative) Urine Urobilinogen Positive H (Negative) Ur Leukocyte Esterase Negative (Negative) Urine Glucose Negative (Negative) Result Diagrams: 05/31/17 21:45 05/31/17 21:45 Lab Statement: Any lab studies that have been ordered have been reviewed, and results considered in the medical decision making process. Course/Dx - Course Assessment/Plan: Patient presents with SOB that began today and hiccups that began a week ago. Also c/o nausea and leg swelling. PMHx of pancreatic cancer. Recently had a course of chemotherapy three weeks ago. Patient was given morphine and Thorazine in the ED. Bloodwork and UA obtained. Patient is diagnosed with pancreatic cancer, persistent hiccups, SOB, and abnormal LFTs. I consulted with mohit Sanchez, who admits the patient at 23:15. - Diagnoses Provider Diagnoses: Pancreatic cancer, persistent hiccups, SOB (shortness of breath), Abnormal LFTs , Hyponatremia - Physician Notifications Discussed Care of Patient With: Marbin Savage Time Discussed With Above Provider: 11:15 Instructed by Provider To: Other - The patient is admitted to mohit Sanchez, at 23:16 Discharge - Discharge Plan Condition: Fair Disposition: ADMITTED TO [facility] documentation as recorded by the Ruth ortez Thomas accurately reflects the service I personally performed and the decisions made by me, Markos Shaw.
[2017-06-01] MEDS: Heparin VIAL(*) 5000 UNITS/ML VIAL (FIVE THOUSAND) SUBCUT SCH ×3 (05:51→21:17)
[2017-06-01 06:38] LABS: Albumin 2.9 g/dL (3.2-5.2); Calcium 8.8 mg/dL (8.6-10.3); EGFR African American 134.5 (>60); EGFR Non-African American 104.6 (>60); Globulin 3.2 g/dL (2-4); Potassium 4.2 mmol/L (3.5-5.0); Total Bilirubin 9.2 mg/dL (0.2-1.0); Total Protein 6.1 g/dL (6.4-8.9)
--- NOTE | 2017-06-01 07:17 | RAD ---
INDICATION: Shortness of breath. COMPARISON: Comparison is made with a prior chest x-ray study from December 22, 2016. TECHNIQUE: A portable view of the chest was obtained. FINDINGS: There is a power port central venous catheter present on the right side. The catheter tip projects approximately at the junction of the superior vena cava right atrium. There is a small linear densities at both lung bases most consistent with subsegmental atelectasis. The lungs are otherwise clear. No pleural effusion is seen. IMPRESSION: NO EVIDENCE FOR ACUTE DISEASE.
--- NOTE | 2017-06-01 07:53 | HP ---
CC: Dr. Shubham Jade; Dr. Surya Gregorio * HISTORY AND PHYSICAL: DATE OF ADMISSION: 06/01/17 CHIEF COMPLAINT: Hiccups. HISTORY OF PRESENT ILLNESS: The patient is a 71-year-old gentleman with history of pancreatic cancer, status post Whipple presents to [facility] with a chief complaint of hiccups that have been so bad over the last 3 days; he sometimes get short of breath. He also notes that at this time he normally takes MS Contin at night as he has been experiencing more pain in his back and abdomen since he has not received it. He says he has been nauseous but has not vomited. He has no other new complaints. He denies fevers or chills. He denies any change in his bowel movements. He says when he does not have hiccups, he is not short of breath and he has no chest pain. In the ED, the patient was evaluated and of significance was that his bilirubin which was only 0.8 just a month ago is now 9.3. PAST MEDICAL HISTORY: He has a past medical history as noted for pancreatic cancer, status post Whipple procedure last July. He also got a stent placed , status post ERCP at that time. He also has had Crohn's disease; type 2 diabetes, diet controlled; diverticulitis, GERD. CURRENT MEDICATIONS: He does have a current list. 1. Ursodiol 300 mg twice daily. 2. Compazine 10 mg every 6 hours as needed. 3. Omeprazole 20 mg daily. 4. Imodium AD 2 mg every 4 hours as needed. 5. Lactobacillus 1 capsule daily. 6. Tylenol 325 mg 4 times a day. ALLERGIES: He has no known drug allergies. FAMILY HISTORY: Mother had coronary artery disease, diabetes. Brother had colon cancer apparently. SOCIAL HISTORY: He is a . He has a significant other. He quit smoking over 20 years ago. He smoked a pack a day for about 30 years, a retired school counselor. He has 2 children. His daughter, Lanny Fernández, is his healthcare proxy. REVIEW OF SYSTEMS: A 14-point review of systems was completed with the patient. All pertinent positives and negatives are in the history of present illness, otherwise negative. PHYSICAL EXAMINATION GENERAL: A pleasant gentleman lying in bed, in no acute distress. VITAL SIGNS: Temperature 98.1 degrees, heart rate 111 beats per minute, respiratory rate 19 breaths per minute, pulse ox 98%, blood pressure 125/71. HEENT: Normocephalic and atraumatic. Pupils are equal, round and reactive to light. Moist mucous membranes. NECK: Supple. No JVD, bruits, palpable thyroid or lymphadenopathy. CHEST: Clear to auscultation and percussion bilaterally. CARDIOVASCULAR: S1, S2 appreciated. Regular rate and rhythm. ABDOMEN: Positive bowel sounds in all 4 quadrants. Soft, nontender, and nondistended. EXTREMITIES: No cyanosis, clubbing, or edema. +2 peripheral pulses bilaterally. NEUROLOGIC: Alert and oriented x3. Moves all extremities. SKIN: No rashes or abnormalities except he does have some icteric sclera and some yellowing of the skin. LABORATORY DATA: Sodium 129, potassium 4.5, chloride 96, CO2 26, BUN 17, creatinine 0.66, glucose 118. Total bili 9.3, AST 57, ALT 31, alk phos 350. His white count is 10.1, hemoglobin 11.2, hematocrit 34, platelets 275, INR 1.2. Urine is positive for urobilinogen. Chest x-ray shows no acute infiltrates. EKG shows sinus tach at a rate of 166 beats per minute, left axis deviation, left anterior hemiblock. ASSESSMENT AND PLAN: 1. Hiccups with shortness of breath. The patient actually improved in the ER alone with just one dose of Thorazine. He is no longer short of breath. He is having some pain however. I will admit him and monitor him overnight. I will give him Dilaudid p.r.n. for pain and restart him on MS Contin that he says he takes at home. 2. Hyperbilirubinemia. It is unclear why this has happened. He may benefit from another ERCP. I have ordered a CAT scan initially for the morning to evaluate. I will recheck his labs again in the a.m. 3. FEN. Regular diet. 4. DVT prophylaxis. Heparin subcu. 5. The patient is a full code. TIME SPENT: Over 75 minutes were spent on this H and P; more than 45 minutes which is spent direct [id number] contact with the patient in evaluation, physical exam, counseling, and coordination of care. [id number]/[facility] #: [id number] [facility]
[2017-06-01] MEDS ORDERED: Morphine INJ* 2 MG/ML 1 ML SYRINGE IV PRN (10:57)
--- NOTE | 2017-06-01 14:19 | RAD ---
HISTORY: Bilateral edema, pancreatic cancer COMPARISONS: None relevant TECHNIQUE: Multiple transverse and longitudinal ultrasound images were obtained of the bilateral lower extremities from the level of the common femoral vein inferiorly through to the infrapopliteal veins using grayscale, color Doppler, and spectral Doppler imaging with and without compression and with augmentation. Comparison images were obtained of the contralateral common femoral vein. FINDINGS: VEINS: The venous system of the bilateral lower extremities is compressible throughout its course, with normal flow on color Doppler imaging and normal response to augmentation on spectral Doppler imaging. SOFT TISSUES: Unremarkable. OTHER FINDINGS: None. IMPRESSION: NO RIGHT LOWER EXTREMITY DEEP VEIN THROMBOSIS. NO LEFT LOWER EXTREMITY DEEP VEIN THROMBOSIS
[2017-06-01] MEDS ORDERED: Iohexol 300* (CONTRAST) 10 ML SDV IV ONE ×2 (16:38→17:27)
--- NOTE | 2017-06-01 17:49 | RAD ---
Indication: Pancreatic cancer with hyperbilirubinemia. Contrast: Administered 104.1 ml of Contrast -- mg/ml CT of the abdomen and pelvis was performed after oral and IV contrast administration. Coronal and sagittal reconstructed images were obtained. Comparison is made with previous exam dated December 22, 2016. Lung bases demonstrate no pleural fluid, nodules or masses. Heart is of normal size without evidence of pericardial effusion. The liver is normal in size. There are well-defined low density lesions in the left lobe of liver predominantly consistent with cysts. Nonspecific linear low density is noted in the periportal region of the left lobe. The possibility of left portal vein thrombosis should BE considered. Periportal edema is noted. Additionally there is suggestion of a hyperenhancing nodules in the inferior tip of the right lobe of liver. Metastatic disease in these areas as well as in the left lobe of liver is not totally excluded. The spleen is normal in size. The patient is status post Whipple's procedure. The remaining pancreatic body and tail are grossly unremarkable. There are multiple may be small celiac lymph nodes which were not present previously. They measure approximately 10 mm. No adrenal masses are noted. The kidneys demonstrate symmetric nephrograms. There is increasing left retroperitoneal adenopathy which was barely perceptible previously now measuring 13 mm in the left para-aortic space. Small bowel demonstrates no abnormal dilatation. Moderate degree of ascites is noted which is also increased since previous exam. Diverticulosis without definite evidence of diverticulitis is noted. There is infiltration and stranding of the omentum and possibility of peritoneal carcinomatosis cannot BE excluded. This is especially prominent inferior to the transverse colon. No hernias are noted. The visualized bony structures are unremarkable. IMPRESSION: ASCITES IS INCREASED SINCE PREVIOUS EXAM. THERE IS INCREASED PERITONEAL STRANDING ESPECIALLY INFERIOR TO THE TRANSVERSE COLON AND THE POSSIBILITY OF PERITONEAL CARCINOMATOSIS SHOULD BE CONSIDERED. INCREASING CELIAC AXIS LYMPH NODE AND LEFT PARA-AORTIC LYMPH NODES ARE NOTED. MULTIPLE HEPATIC CYSTS ARE NOTED IN THE LEFT LOBE. THERE IS PERIPORTAL EDEMA AND SEVERAL LOW DENSITY LESIONS IN THE LEFT LOBE HOWEVER THE LEFT PORTAL VEIN IS NOT IDENTIFIED. THE POSSIBILITY OF LEFT PORTAL VEIN THROMBOSIS SHOULD BE CONSIDERED. UNDERLYING METASTASIS IN THE LEFT LOBE IS NOT TOTALLY EXCLUDED. ADDITIONAL HYPERENHANCING NODULES IN THE INFERIOR TIP OF THE RIGHT LOBE OF LIVER WERE NOT PRESENT ON PREVIOUS EXAM AND HEPATIC METASTASIS IN THE INFERIOR RIGHT LOBE IS NOT EXCLUDED.
[2017-06-01] MEDS: Ursodiol CAP* 300 MG PO SCH (21:17)
[2017-06-02] MEDS: HYDROmorphone* 1 MG/ML 1 ML SYR IV SLOW PU PRN ×4 (00:39→21:51)
[2017-06-02] MEDS: Morphine TAB Extended Release (*) 15 MG TAB.ER PO SCH ×2 (00:39→13:27)
[2017-06-02] MEDS: Heparin VIAL(*) 5000 UNITS/ML VIAL (FIVE THOUSAND) SUBCUT SCH ×3 (04:57→21:53)
[2017-06-02 05:30] LABS: Albumin 2.5 g/dL (3.2-5.2); BUN/Creatinine Ratio 28.3 (8-20); Calcium 8.6 mg/dL (8.6-10.3); EGFR African American 171.3 (>60); EGFR Non-African American 133.2 (>60); Globulin 3.2 g/dL (2-4); Potassium 3.9 mmol/L (3.5-5.0); Total Bilirubin 8.6 mg/dL (0.2-1.0); Total Protein 5.7 g/dL (6.4-8.9)
[2017-06-02 05:37] LABS: Hematocrit 28 % (42-52); Hemoglobin 9.6 g/dl (14.0-18.0); Mean Corpuscular HGB Conc 34 g/dl (31-36); Mean Corpuscular Hemoglobin 33 pg (27-31); Mean Corpuscular Volume 97 fL (80-94); Mean Platelet Volume 8 um3 (7.4-10.4); Red Blood Count 2.89 10^6/ul (4.0-5.4); Red Cell Distribution Width 18 % (10.5-15); White Blood Count 8.4 10^3/ul (3.5-10.8)
--- NOTE | 2017-06-02 10:15 | PN ---
Progress Note - Progress Note Date of Service: 06/02/17 SOAP: Subjective: still w significant hiccups. Dr. Banks spoke with Dr. Marquis and apparently not amenable to ERCP and he recommended percutaneous drainage. He denies nausea or vomiting. +abdominal distention "not too bad" Objective: Vital Signs Temp Pulse Resp BP Pulse Ox 98.1 F 105 20 125/74 96 06/02/17 03:39 06/02/17 03:39 06/02/17 03:39 06/02/17 03:39 06/02/17 03:39 sitting up in nad perr eomi scleral icterus CTA bl s1 s2 tachy distended, +midline pertuberance ?tumor deposit vs. hernia (not reducible) +le edema A+O x 3 jaundice Laboratory Results - last 24 hr 06/02/17 06/02/17 05:10 05:10 WBC 8.4 RBC 2.89 L Hgb 9.6 L Hct 28 L MCV 97 H MCH 33 H MCHC 34 RDW 18 H Plt Count 207 MPV 8 Neut % (Auto) 84.8 H Lymph % (Auto) 3.9 L [place] % (Auto) 9.7 H Eos % (Auto) 1.3 Baso % (Auto) 0.3 Absolute Neuts (auto) 7.1 Absolute Lymphs (auto) 0.3 L Absolute Monos (auto) 0.8 Absolute Eos (auto) 0.1 Absolute Basos (auto) 0 Absolute Nucleated RBC 0 Nucleated RBC % 0 Sodium 128 L Potassium 3.9 Chloride 97 L Carbon Dioxide 26 Anion Gap 5 BUN 17 Creatinine 0.60 L Est GFR ( Amer) 171.3 Est GFR (Non-Af Amer) 133.2 BUN/Creatinine Ratio 28.3 H Glucose 128 H Calcium 8.6 Total Bilirubin 8.60 H AST 63 H ALT 32 Alkaline Phosphatase 312 H Total Protein 5.7 L Albumin 2.5 L Globulin 3.2 Albumin/Globulin Ratio 0.8 L Heparin Sodium (Porcine) (Heparin Vial(*)) 5,000 units SUBCUT Q8HR REID Last Admin: 06/02/17 04:57 Dose: 5,000 units Heparin Sodium (Porcine) (Heparin Flush Port (Ivad)) 5 ml FLUSH DAILY REID PRN Reason: Protocol Last Admin: 06/01/17 13:52 Dose: Not Given Hydromorphone HCl (Dilaudid Iv*) 1 mg IV SLOW PU Q4H PRN PRN Reason: PAIN Last Admin: 06/02/17 00:39 Dose: 1 mg Chlorpromazine HCl 25 mg/ (Sodium Chloride) 51 mls @ 51 mls/hr IV Q4H PRN PRN Reason: HICCUPS Last Admin: 06/01/17 11:23 Dose: 51 mls/hr Morphine Sulfate (Ms Contin(*)) 15 mg PO Q12H REID Last Admin: 06/02/17 00:39 Dose: 15 mg Morphine Sulfate (Morphine Inj (Syringe)*) 2 mg IV Q4H PRN PRN Reason: PAIN - MILD Last Admin: 06/01/17 18:12 Dose: 2 mg Ondansetron HCl (Zofran Inj*) 4 mg IV Q4H PRN PRN Reason: NAUSEA Prochlorperazine Edisylate (Compazine Inj*) 5 mg IV Q6H PRN PRN Reason: NAUSEA/VOMITING Last Admin: 06/01/17 18:11 Dose: 5 mg Ursodiol (Actigall Cap*) 300 mg PO BID REID Last Admin: 06/01/17 21:17 Dose: 300 mg Assessment: 71 yo M w pT3N0 pancreatic cancer recently finishing adjuvant gemcitabine now with biopsy proven recurrence presenting with jaundice and hiccups and found to have hyperbilirubinemia not amenable to endoscopic intervention. I have reviewed the case with Dr. Sepulveda who will evaluate for percutaneous drainage. I discussed with Bettye, his daughter and his sister at length the rationale for this, and the need to reduce his bilirubin for further palliative chemotherapy. Plan: -NPO except meds for procedure -percutaneous drain today if possible -full code -hold heparin sc for now
[2017-06-02] MEDS: CHLORPROMAZINE IV PRN (10:55)
[2017-06-02] MEDS: NS 0.9% IV PRN (10:55)
[2017-06-02] MEDS: Ursodiol CAP* 300 MG PO SCH ×2 (10:55→21:52)
[2017-06-02] MEDS: NS 0.9% 1000 ML* 1,000 ML IV SCH (12:22)
--- NOTE | 2017-06-02 12:47 | RAD ---
HISTORY: Hyperbilirubinemia in a patient with a history of Whipple surgery for pancreatic cancer. Sonographic imaging acquired for the purpose of planning percutaneous biliary drain. COMPARISONS: CT abdomen pelvis June 01, 2017 TECHNIQUE: Multiple transverse and longitudinal ultrasound images were obtained of the right upper quadrant with attention to the liver and biliary system. FINDINGS: Portions of the left lobe of the liver are secured by overlying bowel gas. Sonographic imaging exhibits only moderate dilatation of the intrahepatic biliary ducts. The common bile duct measures a maximum diameter of 3 mm. There is moderate peritoneal ascites including perihepatic fluid. IMPRESSION: THERE IS MILD TO MODERATE INTRAHEPATIC BILIARY DUCT DILATATION. MORE COMPLETELY VISUALIZATION OF THE LEFT LOBE IS PREVENTED BY OVERLYING BOWEL GAS.
[2017-06-03] MEDS: CHLORPROMAZINE IV PRN (00:13)
[2017-06-03] MEDS: NS 0.9% IV PRN (00:13)
[2017-06-03] MEDS: Morphine TAB Extended Release (*) 15 MG TAB.ER PO SCH ×3 (00:13→21:01)
[2017-06-03] MEDS: NS 0.9% 1000 ML* 1,000 ML IV SCH (02:18)
[2017-06-03] MEDS: HYDROmorphone* 1 MG/ML 1 ML SYR IV SLOW PU PRN ×3 (02:19→20:39)
[2017-06-03 06:21] LABS: Albumin 2.6 g/dL (3.2-5.2); Direct Bilirubin 7.1 mg/dL (0.03-0.18); Indirect Bilirubin 3.6 mg/dL (0.3-1.0); Total Bilirubin 10.7 mg/dL (0.2-1.0); Total Protein 5.6 g/dL (6.4-8.9)
[2017-06-03] MEDS: Ursodiol CAP* 300 MG PO SCH ×2 (07:25→20:44)
[2017-06-03] MEDS: Ibuprofen TAB* 400 MG PO PRN (12:30)
[2017-06-03] MEDS ORDERED: cefTRIAXone VIAL(*) 1,000 MG in NS 0.9% 50 ML* 50 ML IVPB ONE (13:00)
[2017-06-03] MEDS ORDERED: fentaNYL* 50 MCG/ML 5 ML VIAL (250 MCG VIAL) ONE (13:49)
[2017-06-03] MEDS ORDERED: Midazolam* 1 MG/ML 5 ML VIAL (5 MG) ONE (13:49)
--- NOTE | 2017-06-03 18:19 | RAD ---
CPT II Codes: 6045F PERCUTANEOUS BILIARY TUBE PLACEMENT WITH SONOGRAPHIC AND FLUOROSCOPIC GUIDANCE. INDICATION: Obstructive hyperbilirubinemia in a patient with a history of Whipple surgery for pancreatic cancer. COMPARISON: Ultrasound liver June 02, [address] abdomen pelvis June 01, 2017 ANTIBIOTIC PROPHYLAXIS: Ceftriaxone 1 g IV ANESTHESIA: 1% lidocaine locally. Conscious sedation provided by intravenous Versed and fentanyl. Continuous cardiopulmonary monitoring was provided by Dr. Sepulveda and IR nursing staff. CONSCIOUS SEDATION TIME: Timeout: 1526 hours Case end: 1614 hours Total conscious sedation time: 48 minutes FLUOROSCOPY TIME: 3 minutes and 52 seconds PROCEDURE NOTE AND IMAGING FINDINGS: The benefits and risks of the procedure explained to the patient. The patient consented to the procedure. The patient was positioned on the fluoroscopy table in the right anterior oblique position. Preliminary sonographic exam demonstrates mildly dilated right lobe biliary radicals corresponding to recent imaging. Color flow analysis does not show any pulsating arteries in the intended percutaneous percutaneous biliary stent tract or in the immediate vicinity of the planned drain placement. The intended percutaneous biliary stent site was prepped and draped in the usual sterile fashion. The patient was given intravenous sedation and local anesthesia with 1% lidocaine. A formal time out was performed by Dr. Sepulveda with the patient and all involved nurse and technologist staff in agreement. Using ultrasound guidance a right lobe biliary radical was accessed percutaneously with a 21 gauge Hussein set. An ultrasound image was saved confirming correct positioning of the needle tip in the biliary radicle. Under fluoroscopic control a microwire was advanced centrally into the common bile duct. The needle was removed and the sheath-stiffener system was inserted into the liver over the wire under fluoroscopic control. The stiffener and microwire were removed and bile was observed draining from the access sheath. A bile sample was gently aspirated, capped in a sterile syringe and sent to the laboratory for analysis. After gently draining as much bile as could easily be expressed, dilute contrast was injected into the biliary system which depicted a mild to moderate degree of biliary dilatation. Under fluoroscopic control a 0.035 inch wire was advanced into the small bowel, the sheath was removed over the wire and the tract dilated up, culminating in advancement of an 8 Czech pigtail biliary drainage catheter with the pigtail portion of the catheter in the small bowel. The pigtail loop was correctly positioned in the small bowel, a final contrast study confirmed appropriate position, the loop was secured and the catheter was connected to a drainage bag. A "pursestring" suture was tied around the skin exit site and then the suture was secured to the drainage catheter with a "Felix sandal" suture. The site was dressed with sterile gauze. The patient tolerated the procedure well without incident. IMPRESSION: Uncomplicated placement of an 8 Czech Cook Biliary Drainage Catheter into a right lobe biliary radical with ultrasound and fluoroscopic guidance as described in the report. PLAN: 1. Percutaneous biliary drainage tube to gravity. 2. Flush drain with 10 mL sterile saline every 8 hours. 3. Monitor drain output. 4. Follow-up laboratory samples. 5. Routine exchange is approximately every 8 weeks.
[2017-06-04] MEDS: NS 0.9% 1000 ML* 1,000 ML IV SCH (04:52)
[2017-06-04 05:13] LABS: Hematocrit 30 % (42-52); Hemoglobin 10.1 g/dl (14.0-18.0); Mean Corpuscular HGB Conc 34 g/dl (31-36); Mean Corpuscular Hemoglobin 33 pg (27-31); Mean Corpuscular Volume 98 fL (80-94); Mean Platelet Volume 7 um3 (7.4-10.4); Red Blood Count 3.03 10^6/ul (4.0-5.4); Red Cell Distribution Width 19 % (10.5-15); White Blood Count 10.7 10^3/ul (3.5-10.8)
[2017-06-04 05:26] LABS: Albumin 2.6 g/dL (3.2-5.2); Direct Bilirubin 7.2 mg/dL (0.03-0.18); Indirect Bilirubin 3.7 mg/dL (0.3-1.0); Total Bilirubin 10.9 mg/dL (0.2-1.0); Total Protein 5.6 g/dL (6.4-8.9)
[2017-06-04] MEDS: HYDROmorphone* 1 MG/ML 1 ML SYR IV SLOW PU PRN (06:35)
[2017-06-04] MEDS: Morphine TAB Extended Release (*) 15 MG TAB.ER PO SCH ×2 (08:02→21:03)
[2017-06-04] MEDS: Ursodiol CAP* 300 MG PO SCH ×2 (08:02→21:03)
--- NOTE | 2017-06-04 09:28 | PN ---
Progress Note - Progress Note Date of Service: 06/04/17 SOAP: Subjective: bili tube placed yesterday and draining bile colored fluid. pain at best with meds 4/10, at worst 7/10, currently 5/10 despite being medicated 1 hr ago. still hiccuping. 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 Objective: Vital Signs Temp Pulse Resp BP Pulse Ox 97.9 F 99 16 109/60 99 06/04/17 07:50 06/04/17 07:50 06/04/17 08:02 06/04/17 07:50 06/04/17 07:50 sitting up in nad pinpoint pupils scleral icterus op moist CTA bl s1 s2 nl distended, tender mildly over drain site which appears clean 1+ le edema bilaterally A+Ox 3, grossly nonfocal, slightly slow speech (medicated 1 hr ago) Laboratory Results - last 24 hr 06/04/17 06/04/17 05:00 05:00 WBC 10.7 RBC 3.03 L Hgb 10.1 L Hct 30 L MCV 98 H MCH 33 H MCHC 34 RDW 19 H Plt Count 258 MPV 7 L Neut % (Auto) 84.5 H Lymph % (Auto) 2.3 L [place] % (Auto) 9.9 H Eos % (Auto) 2.4 Baso % (Auto) 0.9 Absolute Neuts (auto) 9.0 H Absolute Lymphs (auto) 0.2 L Absolute Monos (auto) 1.1 H Absolute Eos (auto) 0.3 Absolute Basos (auto) 0.1 Absolute Nucleated RBC 0 Nucleated RBC % 0 Total Bilirubin 10.90 H Direct Bilirubin 7.20 H Indirect Bilirubin 3.7 H AST 67 H ALT 34 Alkaline Phosphatase 322 H Total Protein 5.6 L Albumin 2.6 L Globulin 3.0 Albumin/Globulin Ratio 0.9 L Heparin Sodium (Porcine) (Heparin Flush Port ([place])) 5 ml FLUSH DAILY REID PRN Reason: Protocol Last Admin: 06/04/17 08:04 Dose: Not Given Chlorpromazine HCl 25 mg/ (Sodium Chloride) 51 mls @ 51 mls/hr IV Q4H PRN PRN Reason: HICCUPS Last Admin: 06/03/17 00:13 Dose: 51 mls/hr Ibuprofen (Motrin Tab*) 400 mg PO Q6H PRN PRN Reason: PAIN Last Admin: 06/03/17 12:30 Dose: 400 mg Morphine Sulfate (Ms Contin(*)) 30 mg PO [facility] Ondansetron HCl (Zofran Inj*) 4 mg IV Q4H PRN PRN Reason: NAUSEA Oxycodone HCl (Roxycodone Tab*) 5 mg PO Q4H PRN PRN Reason: PAIN Prochlorperazine Edisylate (Compazine Inj*) 5 mg IV Q6H PRN PRN Reason: NAUSEA/VOMITING Last Admin: 06/01/17 18:11 Dose: 5 mg Ursodiol (Actigall Cap*) 300 mg PO BID [facility] Last Admin: 06/04/17 08:02 Dose: 300 mg Assessment: 71 yo M w recurrent pancreatic cancer admitted with abdominal pain, hyperbilirubinemia and hiccups, now sp percutaneous biliary drainage and paracentesis. Plan: -cont to monitor bilirubin closely -flush drain q8 hrs x 48 hrs, then no need to flush per Dr. Sepulveda -will try to get on PO pain regimen in anticipation of discharge in near future. increase MS contin to 30 mg po bid starting tonight, start oxycodone PO and stop IV meds -stop fluids -resume heparin DVT prophylaxis -full code
[2017-06-04] MEDS: oxyCODONE TAB* 5 MG TAB PO PRN ×3 (09:56→19:40)
[2017-06-04] MEDS: Magic Mouth Was-BEN/MAAL/LIDO SWISH SWAL SCH ×3 (11:23→21:04)
[2017-06-04] MEDS: Heparin VIAL(*) 5000 UNITS/ML VIAL (FIVE THOUSAND) SUBCUT SCH ×2 (12:27→21:23)
[2017-06-04] MEDS: Ibuprofen TAB* 400 MG PO PRN (12:27)
[2017-06-04] MEDS: HYDROmorphone* 1 MG/ML 1 ML SYR IV PRN (16:58)
[2017-06-04] MEDS ORDERED: Docusate CAP* 100 MG PO PRN (19:26)
[2017-06-04] MEDS ORDERED: Polyethylene Glycol 3350* 17 GM PACKET PO PRN (19:27)
[2017-06-05] MEDS: NS 0.9% IV PRN (00:46)
[2017-06-05] MEDS: CHLORPROMAZINE IV PRN (00:46)
[2017-06-05] MEDS: HYDROmorphone* 1 MG/ML 1 ML SYR IV PRN (03:02)
[2017-06-05] MEDS: Heparin VIAL(*) 5000 UNITS/ML VIAL (FIVE THOUSAND) SUBCUT SCH (05:45)
[2017-06-05 06:24] LABS: Albumin 2.5 g/dL (3.2-5.2); BUN/Creatinine Ratio 34.1 (8-20); Calcium 8.4 mg/dL (8.6-10.3); Direct Bilirubin 5.1 mg/dL (0.03-0.18); EGFR African American 119.5 (>60); EGFR Non-African American 92.9 (>60); Globulin 3.3 g/dL (2-4); Indirect Bilirubin 3.4 mg/dL (0.3-1.0); Potassium 4.2 mmol/L (3.5-5.0); Total Bilirubin 8.5 mg/dL (0.2-1.0); Total Protein 5.8 g/dL (6.4-8.9)
[2017-06-05 07:40] VITALS: BP 100/56
[2017-06-05] MEDS: Morphine TAB Extended Release (*) 15 MG TAB.ER PO SCH (07:44)
[2017-06-05] MEDS: Ursodiol CAP* 300 MG PO SCH (07:44)
[2017-06-05] MEDS: Magic Mouth Was-BEN/MAAL/LIDO SWISH SWAL SCH (07:45)
[2017-06-05] MEDS ORDERED: chlorproMAZINE TAB* 25 MG PO PRN (08:29)
--- NOTE | 2017-06-05 08:55 | DS ---
- Discharge Summary ADMIT 06/01/17 DISCHARGE DATE: 06/05/2017 DISCHARGE DIAGNOSIS: 1. biliary obstruction sp drain placement 2. metastatic pancreatic cancer 3. abdominal pain related to above 4. intractable hiccups DISCHARGE MEDICATIONS: Home Medications Medication Instructions Recorded Confirmed Type Omeprazole CAP* [Prilosec CAP* 20 20 mg PO DAILY 06/26/14 06/01/17 History MG] Lactobacillus [Probiotic] 1 cap PO DAILY 06/27/16 06/01/17 History Acetaminophen [Tylenol] 325 mg PO QID 12/09/16 06/01/17 History Ursodiol 300 mg PO BID 12/09/16 06/01/17 History Loperamide HCl [Imodium A-D] 2 mg PO Q4HR PRN 03/16/17 06/01/17 History Prochlorperazine TAB* [Compazine 10 mg PO Q6H PRN 03/16/17 06/01/17 History Tab*] Morphine TAB Extended Rel(*) [Ms 30 mg PO 0830,2030 #60 tab.er MDD 06/05/17 Rx Contin(*)] 60 mg Omeprazole CAP* [Prilosec CAP* 20 20 mg PO DAILY@0600 cap 06/05/17 Rx MG] Polyethylene Glycol 3350* 17 gm PO DAILY PRN #0 packet 06/05/17 Rx [Miralax*] chlorproMAZINE TAB* [Thorazine 25 mg PO Q6H PRN #0 tab 06/05/17 Rx TAB*] oxyCODONE TAB* [Roxycodone TAB 5 5 mg PO Q4H PRN #180 tab MDD 6 tabs 06/05/17 Rx mg*] BOLDED MEDS ARE NEW OR NEW DOSE DISCHARGE FOLLOW UP: 1. Dr. Gregorio Tuesday 2 pm, with labs 2. will need drain changed q8 weeks per Dr. Sepulveda (may be able to internalize, Dr. Gregorio to discuss with Dr. Sepulveda) HOSPITAL COURSE: Bettye was very recently diagnosed with recurrent pancreatic cancer in the setting of increasing ascites and abdominal lesions. Paracentesis confirmed recurrence. He developed intractable hiccups for which he was prescribed thorazine and flexeril but presented to the ER with abdominal pain and hiccups and was found to be markedly hyperbilirubinemic. Imaging revealed dilated ducts that Dr. Benitez did not feel would be amenable to endoscopic intervention and so he underwent percutaneous drain placement. His bilirubin is trending down. He still has a significant amount of pain at the drain site but is requesting discharge and feels that he can manage this pain at home. He will have VNS at home and will follow up with Dr. Gregorio at 2 pm on Tuesday to check bilirubin and discuss a treatment plan for his recurrent disease. >30 mins spent on this discharge >50% in face to face counseling
[2017-06-05] MEDS: oxyCODONE TAB* 5 MG TAB PO PRN (12:51)
[2017-06-06] MEDS ORDERED: Omeprazole CAP* 20 MG PO SCH (06:00)
== END 2017-06-05 14:50 | disposition home or self-care (01) | DRG 445 ==
LOC: ED 18:19 → MED 06-01 00:41
PROVIDERS: ADMIT Internal Medicine; ATTEND Internal Medicine Hematology & Oncology
PROC: 0F9130Z Drainage of Right Lobe Liver with Drainage Device, Percutaneous Approach (ICD-10-PCS; principal; 2017-06-03)
DX: K83.1 Obstruction of bile duct (principal); C25.9 Malignant neoplasm of pancreas, unspecified; E11.8 Type 2 diabetes mellitus with unspecified complications; R18.8 Other ascites; K50.90 Crohn's disease, unspecified, without complications; K21.9 Gastro-esophageal reflux disease without esophagitis; R06.6 Hiccough; K57.90 Diverticulosis of intestine, part unspecified, without perforation or abscess without bleeding; Z79.1 Long term (current) use of non-steroidal anti-inflammatories (NSAID); Z79.899 Other long term (current) drug therapy; Z82.49 Family history of ischemic heart disease and other diseases of the circulatory system; Z83.3 Family history of diabetes mellitus; Z80.0 Family history of malignant neoplasm of digestive organs; Z87.891 Personal history of nicotine dependence; E80.6 Other disorders of bilirubin metabolism
CPT/HCPCS: 36415; 47490; 71010; 74177; 76705; 80053; 80076; 81003; 82248; 83605; 83690; 83735; 83880; 84484; 85025; 85610; 85730; 87070; 87077; 87186; 87205; 93005; 93970; 99232; 99233; 99239; A9270-GY; C1769; C1887; J0696; J0780; J1170; J1642; J1644; J2250; J2270; J2405; J3010; Q9967